=== PATIENT | female | born 1935 | race Caucasian/White ===

== ENCOUNTER → 2018-06-13 | Outpatient (CLI) | payer MEDICARE, OTHER ==
--- NOTE | 2018-06-15 13:34 | MM ---
Reason for exam: screening (asymptomatic). Last mammogram was performed 5 years and 3 months ago. History: Patient is postmenopausal. Family history of breast cancer in sister at age 40. Benign US left CoreBiopsy of both breasts, October 20, 2007. Took hormonal contraceptives for 5 years. Physical Findings: A clinical breast exam by your physician is recommended on an annual basis and results should be correlated with mammographic findings. MG Screening Mammo w CAD Bilateral CC and MLO view(s) were taken. Prior study comparison: March 16, 2013, bilateral digital screening mammo w/CAD. February 05, 2012, [facility] DIGITAL RIGHT MAMMOGRAM w/CAD. There are scattered fibroglandular densities. Previous mammotome biopsy in the left breast. No significant changes when compared with prior studies. ASSESSMENT: Negative, BI-RAD 1 RECOMMENDATION: Routine screening mammogram of both breasts in 1 year.
== END | disposition home or self-care (01) ==
LOC: RADMAMWWP 10:39
PROVIDERS: ATTEND Internal Medicine Geriatric Medicine
DX: Z12.31 Encounter for screening mammogram for malignant neoplasm of breast (principal)
CPT/HCPCS: 77067

== ENCOUNTER 2024-03-08 16:08 | Emergency (ER) | payer MEDICARE, OTHER ==
--- NOTE | 2024-03-08 16:26 | ED ---
General Adult HPI - General Chief complaint: Fall Stated complaint: fall Time Seen by Provider: 03/08/24 16:15 Source: patient, RN notes reviewed, old records reviewed Mode of arrival: EMS Limitations: no limitations - History of Present Illness Initial comments: 89-year-old female presents status post fall with right forehead and periorbital hematoma. Brief loss of consciousness. No anticoagulation. Patient is quite healthy no daily medications only supplements. Denies pain complaints including headache, neck pain, chest or abdominal pain. No extremity injury. Patient is not completely sure why she fell. - Related Data Allergies Allergy/AdvReac Type Severity Reaction Status Date / Time codeine Allergy Swelling Verified 03/08/24 16:18 Penicillins Allergy Rash/Hives Verified 03/08/24 16:18 Review of Systems ROS Statement: Those systems with pertinent positive or pertinent negative responses have been documented in the HPI. ROS Other: All systems not noted in ROS Statement are negative. Past Medical History Past Medical History: Unable to Obtain History of Any Multi-Drug Resistant Organisms: Unobtainable Past Surgical History: Unable to Obtain Past Alcohol Use History: Unable to Obtain Past Drug Use History: Unable to Obtain General Exam Limitations: no limitations General appearance: alert Head exam: Present: other (Large periorbital and frontal hematoma on the right) Eye exam: Present: periorbital swelling, periorbital tenderness Neck exam: Present: normal inspection, other (C-collar in place). Absent: tenderness, meningismus GI/Abdominal exam: Present: soft. Absent: distended, tenderness Extremities exam: Present: normal inspection, normal capillary refill. Absent: pedal edema Neurological exam: Present: alert, oriented X3, CN II-XII intact. Absent: motor sensory deficit Psychiatric exam: Present: normal affect, normal mood Skin exam: Present: warm, dry, intact. Absent: cyanosis, diaphoretic Course Vital Signs 03/08/24 03/08/24 16:10 16:20 Temperature 98.3 F 98.7 F Pulse Rate 104 H 103 H Respiratory 20 18 Rate Blood Pressure 242/108 249/114 O2 Sat by Pulse 95 96 Oximetry Medical Decision Making - Medical Decision Making Was pt. sent in by a medical professional or institution (, PA, PAINT POURER, urgent care, hospital, or senior care...) When possible be specific @ -No Did you speak to anyone other than the patient for history (EMS, parent, family, police, friend...)? What history was obtained from this source @ -No Did you review nursing and triage notes (agree or disagree)? Why? @ -I reviewed and agree with nursing and triage notes Were old charts reviewed (outside hosp., previous admission, EMS record, old EKG, old radiological studies, urgent care reports/EKG's, senior care records)? Report findings @ -No old charts were reviewed Differential Diagnosis traumatic injury after fall, intracranial hemorrhage, globe injury, facial bone fracture, cervical spine fracture or subluxation. EKG interpreted by me (3pts min.). @Sinus rhythm with PVC rate of 93, IL interval 136, QRS duration 130, QTc [address] segment elevation, right bundle branch block. X-rays interpreted by me (1pt min.). @ -None done CT interpreted by me (1pt min.). @ -CT ordered of the brain, cervical spine, facial bones. CT showing subarachnoid hemorrhage. No midline shift. U/S interpreted by me (1pt. min.). @ -None done What testing was considered but not performed or refused? (CT, X-rays, U/S, labs)? Why? @ -None What meds were considered but not given or refused? Why? @ -None Did you discuss the management of the patient with other professionals (robert moreno i.e., Dr., PA, PAINT POURER, lab, RT, psych nurse, public health social worker, weight tester, teacher, employee service officer, dependency case manager)? Give summary @ -Case discussed with [facility] transfer team. Accepting physician Radha Hayden Was smoking cessation discussed for >3mins.? @ -No Was critical care preformed (if so, how long)? @Yes, 35 minutes Were there social determinants of health that impacted care today? How? (Roya elessness, low income, unemployed, alcoholism, drug addiction, transportation, low edu. Level, literacy, decrease access to med. care, group home, rehab)? @ -No Was there de-escalation of care discussed even if they declined (Discuss DNR or withdrawal of care, Hospice)? DNR status @ -No What co-morbidities impacted this encounter? (DM, HTN, Smoking, COPD, CAD, Cancer, CVA, ARF, Chemo, Hep., AIDS, mental health diagnosis, sleep apnea, morbid obesity)? @ -None Was patient admitted / discharged? Hospital course, mention meds given and route, prescriptions, significant lab abnormalities, going to OR and other pertinent info. @ -89-year-old female with ground-level fall, frontal hematoma, CT showing intracranial hemorrhage. CT facial bones and cervical spine are negative for fracture or subluxation. Laboratory testing unremarkable. Patient started on Cardene for blood pressure reduction as her pressure is quite high and given Keppra for seizure prophylaxis. Undiagnosed new problem with uncertain prognosis? @ -No Drug Therapy requiring intensive monitoring for toxicity (Heparin, Nitro, I nsulin, Cardizem)? @ -No Were any procedures done? @ -No Diagnosis/symptom? @ -Intracranial hemorrhage traumatic subarachnoid hemorrhage Acute, or Chronic, or Acute on Chronic? @ -Acute Uncomplicated (without systemic symptoms) or Complicated (systemic symptoms)? @ -Default Side effects of treatment? @ -No Exacerbation, Progression, or Severe Exacerbation? @ -No Poses a threat to life or bodily function? How? (Chest pain, USA, CT, pneumonia, PE, COPD, DKA, ARF, appy, cholecystitis, CVA, Diverticulitis, Homicidal, Suicidal, threat to staff... and all critical care pts) @ -[Yes, intracranial hemorrhage - Lab Data Result diagrams: 03/08/24 16:27 03/08/24 16:27 Lab Results 03/08/24 03/08/24 03/08/24 Range/Units 16:27 16:27 16:27 WBC 7.6 (3.8-10.6) k/uL RBC 5.25 (3.80-5.40) m/uL Hgb 14.1 (11.4-16.0) gm/dL Hct 43.2 (34.0-46.0) % MCV 82.1 (80.0-100.0) fL MCH 26.8 (25.0-35.0) pg MCHC 32.6 (31.0-37.0) g/dL RDW 15.4 (11.5-15.5) % Plt Count 236 (150-450) k/uL MPV 7.9 Neutrophils % 62 % Lymphocytes % 28 % Monocytes % 5 % Eosinophils % 3 % Basophils % 1 % Neutrophils # 4.7 (1.3-7.7) k/uL Lymphocytes # 2.1 (1.0-4.8) k/uL Monocytes # 0.4 (0-1.0) k/uL Eosinophils # 0.2 (0-0.7) k/uL Basophils # 0.1 (0-0.2) k/uL PT 10.3 (10.0-12.5) sec INR 0.9 (<1.2) APTT 28.7 (22.0-30.0) sec Sodium 140 (137-145) mmol/L Potassium 4.1 (3.5-5.1) mmol/L Chloride 104 (98-107) mmol/L Carbon Dioxide 23 (22-30) mmol/L Anion Gap 13 mmol/L BUN 23 H (7-17) mg/dL Creatinine 1.03 (0.52-1.04) mg/dL Est GFR (CKD-EPI)AfAm 56 (>60 ml/min/1.73 sqM) Est GFR (CKD-EPI)NonAf 49 (>60 ml/min/1.73 sqM) Glucose 151 H (74-99) mg/dL Calcium 9.5 (8.4-10.2) mg/dL Total Bilirubin 0.5 (0.2-1.3) mg/dL AST 30 (14-36) U/L ALT 19 (4-34) U/L Alkaline Phosphatase 99 (38-126) U/L Total Protein 7.6 (6.3-8.2) g/dL Albumin 4.6 (3.5-5.0) g/dL Critical Care Time Critical Care Time: Yes Total Critical Care Time: 35 Disposition Clinical Impression: Fall, Intracranial hemorrhage, Traumatic subarachnoid hemorrhage Disposition: OTHER INSTITUTION NOT DEFINED Condition: Serious Is patient prescribed a controlled substance at d/c from ED?: No Referrals: None,Stated [REFERRING] - 1-2 days Time of Disposition: 17:14 - Out of Hospital Transfer - Req. Specs Out of Hospital Transfer - Requested Specifics: Other Emergency Center (Transfer to [facility])
[2024-03-08 16:45] LABS: Basophils # (A) 0.1 k/uL (0-0.2); Basophils % (A) 1 %; Eosinophils # (A) 0.2 k/uL (0-0.7); Eosinophils % (A) 3 %; HCT 43.2 % (34.0-46.0); HGB 14.1 gm/dL (11.4-16.0); Lymphocytes # (A) 2.1 k/uL (1.0-4.8); Lymphocytes % (A) 28 %; MCH 26.8 pg (25.0-35.0); MCHC 32.6 g/dL (31.0-37.0); MCV 82.1 fL (80.0-100.0); Mean Platelet Volume 7.9; Monocytes # (A) 0.4 k/uL (0-1.0); Monocytes % (A) 5 %; Neutrophils # (A) 4.7 k/uL (1.3-7.7); Neutrophils % (A) 62 %; Platelet Count 236 k/uL (150-450); RBC 5.25 m/uL (3.80-5.40); RDW 15.4 % (11.5-15.5); WBC 7.6 k/uL (3.8-10.6)
[2024-03-08 16:54] VITALS: PULSE 103; RESP 18; TEMP 98.7
[2024-03-08 16:55] LABS: INR 0.9 (<1.2); Partial Thromboplastin Time 28.7 sec (22.0-30.0); Prothrombin Time 10.3 sec (10.0-12.5)
[2024-03-08 17:04] LABS: ALT 19 U/L (4-34); AST 30 U/L (14-36); African American GFR (CKD) 56 (>60 ml/min/1.73 sqM); Albumin 4.6 g/dL (3.5-5.0); Alkaline Phosphatase 99 U/L (38-126); Anion Gap 13 mmol/L; Blood Urea Nitrogen 23 mg/dL (7-17); Calcium 9.5 mg/dL (8.4-10.2); Carbon Dioxide 23 mmol/L (22-30); Chloride 104 mmol/L (98-107); Glucose 151 mg/dL (74-99); Non-African American GFR(CKD) 49 (>60 ml/min/1.73 sqM); Potassium 4.1 mmol/L (3.5-5.1); Sodium 140 mmol/L (137-145); Total Bilirubin 0.5 mg/dL (0.2-1.3); Total Protein 7.6 g/dL (6.3-8.2)
--- NOTE | 2024-03-08 17:14 | CT ---
EXAMINATION TYPE: CT brain cspine wo con, CT facial bones wo con CT DLP: combined DLP 1162.8 mGycm, Automated exposure control for dose reduction was used. DATE OF EXAM: 03/08/2024 4:54 PM COMPARISON: None. CLINICAL INDICATION:Female, 89 years old with history of trauma; fall, large contusion over right eye TECHNIQUE: Brain: Multiple axial CT images of the brain were obtained without IV contrast. Cspine: Axial CT images from the skull base to the inferior aspect of T2 we obtained without intraven ous contrast. Coronal and sagittal reformatted images were also reviewed. Facial: Axial imaging of the facial structures with sagittal coronal reformats. FINDINGS: Brain: Extra-axial spaces: High density blood products are seen within the right frontal lobe sulci series 2 and image 14. Ventricular system: Within normal limits Cerebral parenchyma: No acute intraparenchymal hemorrhage or mass effect. The henderson-white junction is well differentiated. Cerebellum: Unremarkable. Mass effect: No evidence of midline shift. Intracranial vasculature: unremarkable Soft tissues: Normal. Calvarium/osseous structures: No depressed skull fracture. Paranasal sinuses and mastoid air cells: Clear. Visualized orbits: Orbital contents are intact. Cervical spine: Fracture: None. Osseous structures: Multilevel degenerative disc disease changes with endplate spurring and disc oste ophyte complex's. Vertebral alignment: Within normal limits. Spinal canal/Neural Foramina: No evidence of significant spinal canal narrowing. No evidence for sign ificant neural foraminal stenosis. Neck soft tissues: Prevertebral soft tissues are within normal limits. Other: The airway is patent. The lung apices are clear. Facial: Large subcutaneous hematoma around the right orbit up to 63 x 21 x 66 mm. The superior aspect of the [id number]. The proximal do not extend into the extraconal or intraconal fat. Bilaterally aphakia. The temporomandibular joints are symmetric. No evidence of significant paranasal sinus disea se. Atherosclerosis of the carotid bifurcations. IMPRESSION: Large right periorbital subcutaneous hematoma. No evidence for injury to the globe. No intraconal ext raconal blood products are identified. IMPRESSION: 1. Subarachnoid hemorrhage involving the right frontal lobe best appreciated on sagittal imaging. 2. Large right superior orbital subjacent contusion no definitive fracture identified. 3. No evidence of cervical spine fracture. 4. Moderate multilevel degenerative disc disease. Findings communicated to Dr. Michael Darling MD on 03/08/2024 5:[address] Michael Rice.
[2024-03-08] MEDS: niCARdipine 20 MG in SODIUM CHLORIDE 0.9% 192 ML IV SCH (17:41)
[2024-03-08] MEDS: levETIRAcetam IV 2,000 MG in SODIUM CHLORIDE 0.9% 250 ML IVPB ONE (17:43)
[2024-03-08] MEDS: SODIUM CHLORIDE 0.9% 1,000 ML IV SCH (17:43)
[2024-03-08 19:07] VITALS: BP 186/83
== END 2024-03-08 18:20 | disposition other institution (70) ==
LOC: EC 16:08
DX: S06.6XAA Traumatic subarachnoid hemorrhage with loss of consciousness status unknown, initial encounter (principal); S05.11XA Contusion of eyeball and orbital tissues, right eye, initial encounter; R40.2362 Coma scale, best motor response, obeys commands, at arrival to emergency department; R40.2142 Coma scale, eyes open, spontaneous, at arrival to emergency department; R40.2252 Coma scale, best verbal response, oriented, at arrival to emergency department; Z88.0 Allergy status to penicillin; Z88.5 Allergy status to narcotic agent; W01.0XXA Fall on same level from slipping, tripping and stumbling without subsequent striking against object, initial encounter
CPT/HCPCS: 36415; 93005; 80053; 85025; 85610; 85730; 72125; 70486; 70450; 99291; 96365; 96375; J1953

== ENCOUNTER 2024-03-15 10:53 | Observation (INO) | payer MEDICARE, OTHER ==
[2024-03-15 12:28] LABS: Basophils % (A) 1 %; Eosinophils # (A) 0.2 k/uL (0-0.7); Eosinophils % (A) 2 %; HCT 40.3 % (34.0-46.0); Lymphocytes # (A) 1.6 k/uL (1.0-4.8); Lymphocytes % (A) 20 %; MCH 26.7 pg (25.0-35.0); MCHC 32.1 g/dL (31.0-37.0); MCV 82.9 fL (80.0-100.0); Mean Platelet Volume 9.1; Monocytes # (A) 0.5 k/uL (0-1.0); Monocytes % (A) 6 %; Neutrophils # (A) 5.5 k/uL (1.3-7.7); Neutrophils % (A) 69 %; Platelet Count 273 k/uL (150-450); RBC 4.86 m/uL (3.80-5.40); RDW 15.4 % (11.5-15.5); WBC 7.9 k/uL (3.8-10.6)
[2024-03-15 12:48] LABS: ALT 27 U/L (4-34); AST 40 U/L (14-36); African American GFR (CKD) 74 (>60 ml/min/1.73 sqM); Albumin 4.1 g/dL (3.5-5.0); Alkaline Phosphatase 82 U/L (38-126); Anion Gap 9 mmol/L; Blood Urea Nitrogen 23 mg/dL (7-17); Calcium 9.2 mg/dL (8.4-10.2); Carbon Dioxide 21 mmol/L (22-30); Chloride 112 mmol/L (98-107); Glucose 80 mg/dL (74-99); Magnesium 2.2 mg/dL (1.6-2.3); Non-African American GFR(CKD) 64 (>60 ml/min/1.73 sqM); Partial Thromboplastin Time 28.1 sec (22.0-30.0); Phosphorus 3.3 mg/dL (2.5-4.5); Potassium 3.9 mmol/L (3.5-5.1); Prothrombin Time 10.5 sec (10.0-12.5); Sodium 142 mmol/L (137-145); Total Bilirubin 0.9 mg/dL (0.2-1.3)
[2024-03-15 13:56] LABS: Appearance,Urine Cloudy (Clear); Bacteria,Urine Many /hpf; Bilirubin,Urine Negative (Negative); Blood,Urine Negative (Negative); Color,Urine Yellow; Glucose,Urine (UA) Negative (Negative); Hyaline Casts,Urine 5 /lpf (0-2); Ketones,Urine 1+ (Negative); Leukocyte Esterase,Urine Small (Negative); Mucus,Urine Many /hpf; Nitrite,Urine Negative (Negative); PH, Urine 5.5 (5.0-8.0); Protein,Urine 1+ (Negative); RBC,Urine 2 /hpf (0-5); Specific Gravity,Urine 1.025 (1.001-1.035); Squamous Epithelial Cell,Urine 7 /hpf (0-4); WBC,Urine 9 /hpf (0-5)
--- NOTE | 2024-03-15 14:03 | XR ---
EXAMINATION TYPE: XR chest 2V DATE OF EXAM: 03/15/2024 1:04 PM CLINICAL INDICATION:Female, 89 years old with history of Weakness; [facility] COMPARISON: None. TECHNIQUE: XR chest 2V Frontal and lateral views of the chest. FINDINGS: Lungs/Pleura: There is no evidence of pleural effusion, focal consolidation, or pneumothorax. Pulmonary vascularity: Unremarkable. Heart/mediastinum: Cardiomediastinal silhouette is unremarkable. Musculoskeletal: No acute osseous pathology. Other findings: None Lines/Tubes: None. IMPRESSION: No acute cardiopulmonary disease/process.
[2024-03-15] MEDS ORDERED: ACETAMINOPHEN TAB 325 MG TAB PO PRN (14:30)
[2024-03-15] MEDS ORDERED: NALOXONE 0.4 MG/ML 1 ML VIAL IV PRN (14:30)
--- NOTE | 2024-03-15 14:30 | ED ---
Weakness HPI - General Chief complaint: Weakness Stated complaint: Weakness Time Seen by Provider: 03/15/24 11:11 Source: patient, EMS, RN notes reviewed Mode of arrival: EMS Limitations: no limitations - History of Present Illness Initial comments: 89-year-old female presents emergency department with chief complaint of weakness. Patient states she was seen here last Wednesday and was transferred down to [facility] for intracranial hemorrhage. Patient states she was placed on once new medications but states that she was told she would need diomedes ab. She states she told she may have had a stroke. Patient states that she went home from the hospital yesterday and sat in recliner throughout the night to this morning in which family could not get up to walk. Patient is eating inpatient therapy she was eval by outpatient and felt that she was too high acuity. - Related Data Home Medications Medication Instructions Recorded Confirmed Acetaminophen [Tylenol] 650 mg PO Q6H PRN 03/15/24 03/15/24 Atorvastatin [Lipitor] 40 mg PO HS 03/15/24 03/15/24 Clopidogrel [Plavix] 75 mg PO DAILY 03/15/24 03/15/24 Losartan [Cozaar] 50 mg PO DAILY 03/15/24 03/15/24 Multivitamins, Thera [Multivitamin 1 tab PO DAILY 03/15/24 03/15/24 (formulary)] NIFEdipine [Adalat CC] 30 mg PO DAILY 03/15/24 03/15/24 [place]-3/Dha/Epa/Fish Oil [Fish Oil 1 cap PO DAILY 03/15/24 03/15/24 1,000 mg Softgel] levETIRAcetam [Keppra] 500 mg PO BID 03/15/24 03/15/24 Allergies Allergy/AdvReac Type Severity Reaction Status Date / Time codeine Allergy Swelling Verified 03/15/24 13:08 Penicillins Allergy Rash/Hives Verified 03/15/24 13:08 Review of Systems ROS Statement: Those systems with pertinent positive or pertinent negative responses have been documented in the HPI. ROS Other: All systems not noted in ROS Statement are negative. Past Medical History Past Medical History: Unable to Obtain History of Any Multi-Drug Resistant Organisms: Unobtainable Past Surgical History: Unable to Obtain Past Alcohol Use History: Unable to Obtain Past Drug Use History: Unable to Obtain General Exam Limitations: no limitations General appearance: alert, in no apparent distress Head exam: Present: atraumatic, normocephalic, normal inspection Eye exam: Present: PERRL, EOMI, periorbital swelling, periorbital tenderness. Absent: normal appearance (Extensive facial and periorbital ecchymosis), scleral icterus, conjunctival injection ENT exam: Present: normal exam, mucous membranes moist Neck exam: Present: normal inspection, full ROM. Absent: tenderness, meningismus, lymphadenopathy Respiratory exam: Present: normal lung sounds bilaterally. Absent: respiratory distress, wheezes, rales, rhonchi, stridor Cardiovascular Exam: Present: regular rate, normal rhythm, normal heart sounds. Absent: systolic murmur, diastolic murmur, rubs, gallop, clicks GI/Abdominal exam: Present: soft, normal bowel sounds. Absent: distended, tend erness, guarding, rebound, rigid Extremities exam: Present: other (Generalized weakness) Neurological exam: Present: alert, oriented X3. Absent: motor sensory deficit Course Vital Signs 03/15/24 11:19 Temperature 98.1 F Pulse Rate 75 Respiratory 18 Rate Blood Pressure 159/68 O2 Sat by Pulse 97 Oximetry EKG Findings - EKG Comments: EKG Findings:: EKG performed at 12: 14 sinus rhythm rate of 69 ND 146 QRS 135 QT/QTc 458/476 - EKG Results: EKG: interpreted by ALEXANDR Medical Decision Making - Medical Decision Making Was pt. sent in by a medical professional or institution (, PA, HEALTH SERVICES RN, urgent care, hospital, or senior living...) When possible be specific @ -No Did you speak to anyone other than the patient for history (EMS, parent, family, police, friend...)? What history was obtained from this source @ -No Did you review nursing and triage notes (agree or disagree)? Why? @ -I reviewed and agree with nursing and triage notes Were old charts reviewed (outside hosp., previous admission, EMS record, old EKG, old radiological studies, urgent care reports/EKG's, senior living records)? Report findings @ -No old charts were reviewed Differential Diagnosis (chest pain, altered mental status, abdominal pain women, abdominal pain men, vaginal bleeding, weakness, fever, dyspnea, syncope, headache, dizziness, GI bleed, back pain, seizure, CVA, palpatations, mental health, musculoskeletal)? @ -Differential Weakness: Hypoglycemia, shock, sepsis, hyponatremia, anemia, infection, OH, ETOH, adverse medicine reaction, overdose, stroke, this is not meant to be an all-inclusive list. EKG interpreted by me (3pts min.). @ -As above X-rays interpreted by me (1pt min.). @ -None done CT interpreted by me (1pt min.). @ -None done U/S interpreted by me (1pt. min.). @ -None done What testing was considered but not performed or refused? (CT, X-rays, U/S, labs)? Why? @ -None What meds were considered but not given or refused? Why? @ -None Did you discuss the management of the patient with other professionals (professionals i.e. , PA, HEALTH SERVICES RN, lab, RT, psych nurse, social scientist, oil change technician, teacher, collection officer, shoe parts caser)? Give summary @ -Dr. Daley for admission for placement in rehab Was smoking cessation discussed for >3mins.? @ -No Was critical care preformed (if so, how long)? @ -No Were there social determinants of health that impacted care today? How? (Homelessness, low income, unemployed, alcoholism, drug addiction, transportation, low edu. Level, literacy, decrease access to med. care, halfway, rehab)? @ -No Was there de-escalation of care discussed even if they declined (Discuss DNR or withdrawal of care, Hospice)? DNR status @ -No What co-morbidities impacted this encounter? (DM, HTN, Smoking, COPD, CAD, Cancer, CVA, ARF, Chemo, Hep., AIDS, mental health diagnosis, sleep apnea, morbid obesity)? @ -Intracranial hemorrhage Was patient admitted / discharged? Hospital course, mention meds given and route, prescriptions, significant lab abnormalities, going to OR and other pertinent info. @ -Admitted patient had full repeat laboratory studies no acute findings patient is no focal weakness no new head injury or loss conscious. Patient will be admitted for placement to inpatient rehab Undiagnosed new problem with uncertain prognosis? @ -No Drug Therapy requiring intensive monitoring for toxicity (Heparin, Nitro, Insulin, Cardizem)? @ -No Were any procedures done? @ -No Diagnosis/symptom? @ -Weakness, unable to ambulate, recent intracranial hemorrhage Acute, or Chronic, or Acute on Chronic? @ -Acute Uncomplicated (without systemic symptoms) or Complicated (systemic symptoms)? @ -Uncomplicated Side effects of treatment? @ -No Exacerbation, Progression, or Severe Exacerbation? @ -No Poses a threat to life or bodily function? How? (Chest pain, USA, [place], pneumonia, PE, COPD, DKA, ARF, appy, cholecystitis, CVA, Diverticulitis, Homicidal, Suicidal, threat to staff... and all critical care pts) @ -No - Lab Data Result diagrams: 03/15/24 12:15 03/15/24 12:15 Lab Results 03/15/24 03/15/24 03/15/24 Range/Units 12:15 12:15 12:15 WBC 7.9 (3.8-10.6) k/uL RBC 4.86 (3.80-5.40) m/uL Hgb 13.0 (11.4-16.0) gm/dL Hct 40.3 (34.0-46.0) % MCV 82.9 (80.0-100.0) fL MCH 26.7 (25.0-35.0) pg MCHC 32.1 (31.0-37.0) g/dL RDW 15.4 (11.5-15.5) % Plt Count 273 (150-450) k/uL MPV 9.1 Neutrophils % 69 % Lymphocytes % 20 % Monocytes % 6 % Eosinophils % 2 % Basophils % 1 % Neutrophils # 5.5 (1.3-7.7) k/uL Lymphocytes # 1.6 (1.0-4.8) k/uL Monocytes # 0.5 (0-1.0) k/uL Eosinophils # 0.2 (0-0.7) k/uL Basophils # 0.0 (0-0.2) k/uL PT 10.5 (10.0-12.5) sec INR 1.0 (<1.2) APTT 28.1 (22.0-30.0) sec Sodium (137-145) mmol/L Potassium (3.5-5.1) mmol/L Chloride (98-107) mmol/L Carbon Dioxide (22-30) mmol/L Anion Gap mmol/L BUN (7-17) mg/dL Creatinine (0.52-1.04) mg/dL Est GFR (CKD-EPI)AfAm (>60 ml/min/1.73 sqM) Est GFR (CKD-EPI)NonAf (>60 ml/min/1.73 sqM) Glucose (74-99) mg/dL Plasma Lactic Acid Abdulaziz (0.7-2.0) mmol/L Calcium (8.4-10.2) mg/dL Phosphorus (2.5-4.5) mg/dL Magnesium (1.6-2.3) mg/dL Total Bilirubin (0.2-1.3) mg/dL AST (14-36) U/L ALT (4-34) U/L Alkaline Phosphatase (38-126) U/L Troponin I (0.000-0.034) ng/mL Total Protein (6.3-8.2) g/dL Albumin (3.5-5.0) g/dL Urine Color Yellow Urine Appearance Cloudy H (Clear) Urine pH 5.5 (5.0-8.0) Ur Specific [place] 1.025 (1.001-1.035) Urine Protein 1+ H (Negative) Urine Glucose (UA) Negative (Negative) Urine Ketones 1+ H (Negative) Urine Blood Negative (Negative) Urine Nitrite Negative (Negative) Urine Bilirubin Negative (Negative) Urine Urobilinogen 2.0 (<2.0) mg/dL Ur Leukocyte Esterase Small H (Negative) Urine RBC 2 (0-5) /hpf Urine WBC 9 H (0-5) /hpf Ur Squamous Epith Cells 7 H (0-4) /hpf Urine Bacteria Many H (None) /hpf Hyaline Casts 5 H (0-2) /lpf Urine Mucus Many H (None) /hpf 03/15/24 03/15/24 03/15/24 Range/Units 12:15 12:15 12:15 WBC (3.8-10.6) k/uL RBC (3.80-5.40) m/uL Hgb (11.4-16.0) gm/dL Hct (34.0-46.0) % MCV (80.0-100.0) fL MCH (25.0-35.0) pg MCHC (31.0-37.0) g/dL RDW (11.5-15.5) % Plt Count (150-450) k/uL MPV Neutrophils % % Lymphocytes % % Monocytes % % Eosinophils % % Basophils % % Neutrophils # (1.3-7.7) k/uL Lymphocytes # (1.0-4.8) k/uL Monocytes # (0-1.0) k/uL Eosinophils # (0-0.7) k/uL Basophils # (0-0.2) k/uL PT (10.0-12.5) sec INR (<1.2) APTT (22.0-30.0) sec Sodium 142 (137-145) mmol/L Potassium 3.9 (3.5-5.1) mmol/L Chloride 112 H (98-107) mmol/L Carbon Dioxide 21 L (22-30) mmol/L Anion Gap 9 mmol/L BUN 23 H (7-17) mg/dL Creatinine 0.82 (0.52-1.04) mg/dL Est GFR (CKD-EPI)AfAm 74 (>60 ml/min/1.73 sqM) Est GFR (CKD-EPI)NonAf 64 (>60 ml/min/1.73 sqM) Glucose 80 (74-99) mg/dL Plasma Lactic Acid Abdulaziz 1.0 (0.7-2.0) mmol/L Calcium 9.2 (8.4-10.2) mg/dL Phosphorus 3.3 (2.5-4.5) mg/dL Magnesium 2.2 (1.6-2.3) mg/dL Total Bilirubin 0.9 (0.2-1.3) mg/dL AST 40 H (14-36) U/L ALT 27 (4-34) U/L Alkaline Phosphatase 82 (38-126) U/L Troponin I 0.024 (0.000-0.034) ng/mL Total Protein 7.0 (6.3-8.2) g/dL Albumin 4.1 (3.5-5.0) g/dL Urine Color Urine Appearance (Clear) Urine pH (5.0-8.0) Ur Specific [place] (1.001-1.035) Urine Protein (Negative) Urine Glucose (UA) (Negative) Urine Ketones (Negative) Urine Blood (Negative) Urine Nitrite (Negative) Urine Bilirubin (Negative) Urine Urobilinogen (<2.0) mg/dL Ur Leukocyte Esterase (Negative) Urine RBC (0-5) /hpf Urine WBC (0-5) /hpf Ur Squamous Epith Cells (0-4) /hpf Urine Bacteria (None) /hpf Hyaline Casts (0-2) /lpf Urine Mucus (None) /hpf Disposition Clinical Impression: Weakness, Recent cerebral hemorrhage, Unable to ambulate Disposition: ADMITTED IP TO THIS HOSP Condition: Fair Referrals: Carmine Daley MD [Primary Care Provider] - 1-2 days Time of Disposition: 14:29
[2024-03-15] MEDS: hydrALAZINE HCL 10 MG TAB PO SCH (18:07)
[2024-03-15] MEDS: ATORVASTATIN 40 MG TAB PO SCH (21:35)
[2024-03-15] MEDS: levETIRAcetam 500 MG TAB PO SCH (21:35)
--- NOTE | 2024-03-16 08:42 | P.HPIM ---
History of Present Illness H&P Date: 03/16/24 Chief Complaint: weakness This is an 89-year-old female who presented to the emergency department with complaints of weakness. Patient had a recent stay at [facility] for an intracranial hemorrhage from a fall. Patient reports prior to fall she was at the [place] on aging and does not remember the fall. Patient was originally brought to [facility] but then transferred to [facility]. She was discharged from [facility] on Wednesday and felt she was too weak to stay at home so she came to the emergency room. Patient seen and evaluated laying in bed this morning. She has bruising on her face. Reports her right leg feels weak. She has not been up moving around the room yet. Physical therapy and Occupational Therapy have been consulted. Further medical history as noted below. Review of Systems Constitutional: Denies chills, Denies fever Cardiovascular: Denies chest pain, Denies dyspnea on exertion Respiratory: Denies cough, Denies dyspnea Gastrointestinal: Denies abdominal pain, Denies nausea, Denies vomiting Musculoskeletal: Denies arm numbness/tingling, Denies leg numbness/tingling Neurological: Reports weakness, Denies headaches Past Medical History Past Medical History: Unable to Obtain History of Any Multi-Drug Resistant Organisms: Unobtainable Past Surgical History: Hernia Repair Smoking Status: Former smoker Past Alcohol Use History: Unable to Obtain Past Drug Use History: Unable to Obtain Medications and Allergies Home Medications Medication Instructions Recorded Confirmed Type Acetaminophen [Tylenol] 650 mg PO Q6H PRN 03/15/24 03/15/24 History Atorvastatin [Lipitor] 40 mg PO HS 03/15/24 03/15/24 History Clopidogrel [Plavix] 75 mg PO DAILY 03/15/24 03/15/24 History Losartan [Cozaar] 50 mg PO DAILY 03/15/24 03/15/24 History Multivitamins, Thera [Multivitamin 1 tab PO DAILY 03/15/24 03/15/24 History (formulary)] NIFEdipine [Adalat CC] 30 mg PO DAILY 03/15/24 03/15/24 History [place]-3/Dha/Epa/Fish Oil [Fish Oil 1 cap PO DAILY 03/15/24 03/15/24 History 1,000 mg Softgel] levETIRAcetam [Keppra] 500 mg PO BID 03/15/24 03/15/24 History Allergies Allergy/AdvReac Type Severity Reaction Status Date / Time codeine Allergy Swelling Verified 03/15/24 13:08 Penicillins Allergy Rash/Hives Verified 03/15/24 13:08 Physical Exam Vitals: Vital Signs Temp Pulse Pulse Resp BP BP Pulse Ox 03/16/24 08:15 96 03/16/24 06:56 99.1 F 87 18 180/74 96 03/16/24 01:57 98.5 F 88 16 170/77 97 03/15/24 17:07 97.6 F 90 17 200/90 98 03/15/24 16:08 98.1 F 81 17 185/54 100 03/15/24 15:21 98.1 F 80 18 171/72 97 03/15/24 11:19 98.1 F 75 18 159/68 97 Intake and Output 03/15/24 03/16/24 03/16/24 22:59 06:59 14:59 Output Total 900 Balance -900 Output: Urine 900 Other: Voiding Method External Catheter # Voids 0 Weight 65.771 kg - Constitutional General appearance: cooperative, no acute distress - EENT Eyes: PERRLA - Neck Neck: no lymphadenopathy, normal ROM, no rigidity - Respiratory Respiratory: bilateral: CTA - Cardiovascular Rhythm: regular Heart sounds: normal: S1, S2 - Gastrointestinal General gastrointestinal: soft, no tenderness - Integumentary bruising and right eye edema - Neurologic Neurologic: CNII-XII intact - Musculoskeletal Musculoskeletal: generalized weakness, strength equal bilaterally - Psychiatric Psychiatric: A&O x's 3 Results CBC & Chem 7: 03/15/24 12:15 03/15/24 12:15 Labs: Abnormal Lab Results - Last 24 Hours (Table) 03/15/24 03/15/24 Range/Units 12:15 12:15 Chloride 112 H (98-107) mmol/L Carbon Dioxide 21 L (22-30) mmol/L BUN 23 H (7-17) mg/dL AST 40 H (14-36) U/L Urine Appearance Cloudy H (Clear) Urine Protein 1+ H (Negative) Urine Ketones 1+ H (Negative) Ur Leukocyte Esterase Small H (Negative) Urine WBC 9 H (0-5) /hpf Ur Squamous Epith Cells 7 H (0-4) /hpf Urine Bacteria Many H (None) /hpf Hyaline Casts 5 H (0-2) /lpf Urine Mucus Many H (None) /hpf Thrombosis Risk Factor Assmnt - Choose All That Apply Each Factor Represents 1 point: Obesity (BMI >25) Each Risk Factor Represents 3 Points: Age 75 years or older Thrombosis Risk Factor Assessment Total Risk Factor Score: 4 Thrombosis Risk Factor Assessment Level: Moderate Risk Assessment and Plan (1) Hypertension Current Visit: Yes Status: Acute Code(s): I10 - ESSENTIAL (PRIMARY) HYPERT ENSION SNOMED Code(s): 30387567 (2) Recent cerebral hemorrhage Current Visit: Yes Status: Acute Code(s): Z86.73 - PRSNL HX OF TIA (TIA), AND CEREB INFRC W/O RESID DEFICITS SNOMED Code(s): 537882602 (3) Unable to ambulate Current Visit: Yes Status: Acute Code(s): R26.2 - DIFFICULTY IN WALKING, NOT ELSEWHERE CLASSIFIED SNOMED Code(s): 359548341 (4) Weakness Current Visit: Yes Status: Acute Code(s): R53.1 - WEAKNESS SNOMED Code(s): 68092631 Plan: Check CBC and CMP in the morning. Consulted PT and OT for evaluation. Case management consult to work on placement for discharge Patient seen and evaluated by nurse practitioner, physician in agreement with plan
[2024-03-16] MEDS: LOSARTAN 50 MG TAB PO SCH (10:12)
[2024-03-16] MEDS: MULTIVITAMINS, THERA 1 EACH TAB PO SCH (10:12)
[2024-03-16] MEDS: CLOPIDOGREL 75 MG TAB PO SCH (10:12)
[2024-03-16] MEDS: NIFEdipine XL 30 MG TAB.ER.24 PO SCH (10:13)
[2024-03-16] MEDS: hydrALAZINE HCL 20 MG/ML 1 ML VIAL IVP PRN (20:35)
--- NOTE | 2024-03-17 08:19 | P.DS ---
Providers Date of admission: 03/15/24 14:07 Attending physician: Carmine Daley Primary care physician: Carmine Daley Patient Condition at Discharge: Fair Plan - Discharge Summary Discharge Rx Participant: Yes New Discharge Prescriptions: Continue levETIRAcetam [Keppra] 500 mg PO BID Multivitamins, Thera [Multivitamin (formulary)] 1 tab PO DAILY Atorvastatin [Lipitor] 40 mg PO HS Acetaminophen [Tylenol] 650 mg PO Q6H PRN PRN Reason: Fever And/ Or Pain [place]-3/Dha/Epa/Fish Oil [Fish Oil 1,000 mg Softgel] 1 cap PO DAILY Clopidogrel [Plavix] 75 mg PO DAILY NIFEdipine [Adalat CC] 30 mg PO DAILY Changed Losartan [Cozaar] 100 mg PO DAILY 2 Days #30 tab Discharge Medication List Acetaminophen [Tylenol] 650 mg PO Q6H PRN 03/15/24 [History] Atorvastatin [Lipitor] 40 mg PO HS 03/15/24 [History] Clopidogrel [Plavix] 75 mg PO DAILY 03/15/24 [History] Multivitamins, Thera [Multivitamin (formulary)] 1 tab PO DAILY 03/15/24 [Hi story] NIFEdipine [Adalat CC] 30 mg PO DAILY 03/15/24 [History] [place]-3/Dha/Epa/Fish Oil [Fish Oil 1,000 mg Softgel] 1 cap PO DAILY 03/15/24 [History] levETIRAcetam [Keppra] 500 mg PO BID 03/15/24 [History] Losartan [Cozaar] 100 mg PO DAILY 2 Days #30 tab 03/17/24 [Rx] Follow up Appointment(s)/Referral(s): Carmine Daley MD [Primary Care Provider] - 1 Week Discharge Disposition: TRANSFER TO SNF/ECF
--- NOTE | 2024-03-17 08:20 | P.DS ---
Providers Date of admission: 03/15/24 14:07 Attending physician: Carmine Daley Primary care physician: Carmine Daley Hospital Course: This is a discharge from an 89-year-old white female who fell having facial hematoma and intracranial hemorrhage. She went home and had significant weakness and mobility issues. She was now readmitted for placement. She was transferred to ECF for appropriate balance and strength reintegration. Blood pressure was elevated with hypertensive urgency, we will increase her losartan after giving her hydralazine here. The patient will follow-up with me in about a week. Patient Condition at Discharge: Fair Plan - Discharge Summary Discharge Rx Participant: Yes New Discharge Prescriptions: Continue levETIRAcetam [Keppra] 500 mg PO BID Multivitamins, Thera [Multivitamin (formulary)] 1 tab PO DAILY Atorvastatin [Lipitor] 40 mg PO HS Acetaminophen [Tylenol] 650 mg PO Q6H PRN PRN Reason: Fever And/ Or Pain [place]-3/Dha/Epa/Fish Oil [Fish Oil 1,000 mg Softgel] 1 cap PO DAILY Clopidogrel [Plavix] 75 mg PO DAILY NIFEdipine [Adalat CC] 30 mg PO DAILY Changed Losartan [Cozaar] 100 mg PO DAILY 2 Days #30 tab Discharge Medication List Acetaminophen [Tylenol] 650 mg PO Q6H PRN 03/15/24 [History] Atorvastatin [Lipitor] 40 mg PO HS 03/15/24 [History] Clopidogrel [Plavix] 75 mg PO DAILY 03/15/24 [History] Multivitamins, Thera [Multivitamin (formulary)] 1 tab PO DAILY 03/15/24 [History] NIFEdipine [Adalat CC] 30 mg PO DAILY 03/15/24 [History] [place]-3/Dha/Epa/Fish Oil [Fish Oil 1,000 mg Softgel] 1 cap PO DAILY 03/15/24 [History] levETIRAcetam [Keppra] 500 mg PO BID 03/15/24 [History] Losartan [Cozaar] 100 mg PO DAILY 2 Days #30 tab 03/17/24 [Rx] Follow up Appointment(s)/Referral(s): Carmine Daley MD [Primary Care Provider] - 1 Week Discharge Disposition: TRANSFER TO SNF/ECF
[2024-03-17 09:11] VITALS: BP 172/74; PULSE 77; RESP 18; TEMP 98.8
[2024-03-17 10:53] LABS: HCT 39.1 % (37.2-46.3); HGB 12.3 g/dL (12.0-15.0); MCH 26.1 pg (27.0-32.0); MCHC 31.5 g/dL (32.0-37.0); Mean Platelet Volume 10.4 FL (9.5-12.2); NRBC Per 100 WBC 0 X 10*3/uL (0.00-0.01); Platelet Count 258 X 10*3/uL (140-440); RBC 4.71 X 10*6/uL (4.10-5.20); RDW 15.6 % (11.5-14.5); WBC 8.05 X 10*3/uL (4.50-10.00)
[2024-03-17 11:07] LABS: ALT 26 U/L (8-44); AST 36 U/L (13-35); Albumin/Globulin Ratio 1.74 Ratio (1.60-3.17); Alkaline Phosphatase 79 U/L (41-126); BUN/Creat Ratio 17.56 Ratio (12.00-20.00); Blood Urea Nitrogen 15.8 mg/dL (9.0-27.0); Calcium 9.4 mg/dL (8.7-10.3); Carbon Dioxide 20.2 mmol/L (21.6-31.8); Chloride 107 mmol/L (96-109); Globulin 2.3 g/dL (1.6-3.3); Glucose 92 mg/dL (70-110); Potassium 3.9 mmol/L (3.5-5.5); Sodium 140 mmol/L (135-145); Total Bilirubin 0.8 mg/dL (0.3-1.2); Total Protein 6.3 g/dL (6.2-8.2)
== END 2024-03-17 14:19 ==
LOC: EC 10:53 → 4SSUR 14:07
PROVIDERS: ADMIT Family Medicine; ATTEND Family Medicine
DX: S06.30AA Unspecified focal traumatic brain injury with loss of consciousness status unknown, initial encounter (principal); W19.XXXA Unspecified fall, initial encounter; I16.0 Hypertensive urgency
CPT/HCPCS: 96374; 99285; 36415; 94760; 93005; 97162; 97166; 80053 ×2; 83605; 83735; 84100; 84484; 85025; 85027; 85610; 85730; 81001; 71046; G0378 ×3; J0360

== ENCOUNTER 2024-04-10 18:35 | Emergency (ER) | payer MEDICARE, OTHER ==
--- NOTE | 2024-04-10 20:09 | ED ---
ENT HPI - General Chief complaint: ENT Stated complaint: Nose Bleed Time Seen by Provider: 04/10/24 20:09 Source: patient, family, RN notes reviewed Mode of arrival: ambulatory Limitations: no limitations - History of Present Illness Initial comments: 89-year-old female presenting to the ER with a chief complaint of epistaxis. Patient recently seen here on 03-08-2024 for a fall. Patient found to have an intracranial hemorrhage and transferred to [facility] for further evaluation and treatment. Patient was discharged home after 3-day stay at [facility]. Patient was seen here again on 03-15-2024 for weakness and rehab placement. Patient has been residing at [facility] since 03-17-2024. Yesterday staff at [facility] report patient had a nosebleed. She is currently on Plavix. They state they took her blood pressure at that time and found to be 220/98. They gave her nifedipine and clonidine with resolution of blood pressure to 130s systolic. Today patient had multiple nosebleeds per staff. Son reports he saw her earlier this morning and again in the afternoon and states she has been slightly weak/altered. Patient sent here for evaluation. Patient denies any current pain or complaints. - Related Data Home Medications Medication Instructions Recorded Confirmed Atorvastatin [Lipitor] 40 mg PO HS@209903/15/24 04/12/24 Clopidogrel [Plavix] 75 mg PO DAILY@79903/15/24 04/12/24 Multivitamins, Thera [Multivitamin 1 tab PO DAILY@79903/15/24 04/12/24 (formulary)] NIFEdipine [Adalat CC] 30 mg PO DAILY@79903/15/24 04/12/24 [place]-3/Dha/Epa/Fish Oil [Fish Oil 1 cap PO DAILY@79903/15/24 04/12/24 1,000 mg Softgel] levETIRAcetam [Keppra] 500 mg PO BID@0800,209903/15/24 04/12/24 Acetaminophen [Tylenol 8 Hour] 650 mg PO Q6H PRN 04/12/24 04/12/24 Aspirin EC [Ecotrin Low Dose] 81 mg PO DAILY@0800 04/12/24 04/12/24 Dextran/Hypromellose/Glycerin 1 drop BOTH EYES BID PRN 04/12/24 04/12/24 [Genteal Tears 0.1%-0.2%-0.3%] Magnesium Hydroxide [Milk of 7,200 mg PO Q48H PRN 04/12/24 04/12/24 Magnesia Concentrate] Menthol [Biofreeze] 1 applic TOPICAL TID@0800,1400,2100 04/12/24 04/12/24 Na Phos,M-B/Na Phos,Di-Ba [Fleet 133 ml RECTAL DAILY PRN 04/12/24 04/12/24 Adult] Oxymetazoline 0.05% Nasl [place] 2 spray EA NOSTRIL 5XD PRN 04/12/24 04/12/24 [Afrin 0.05% Nasal [place]] Pantoprazole [Protonix] 40 mg PO DAILY@0600 04/12/24 04/12/24 bisacodyL [Dulcolax] 10 mg RECTAL DAILY PRN 04/12/24 04/12/24 cloNIDine HCL [Catapres] 0.1 mg PO Q6H PRN 04/12/24 04/12/24 Previous Rx's Medication Instructions Recorded Losartan [Cozaar] 100 mg PO DAILY 2 Days #30 tab 03/17/24 Allergies Allergy/AdvReac Type Severity Reaction Status Date / Time codeine Allergy Swelling Verified 04/12/24 19:36 Penicillins Allergy Rash/Hives Verified 04/12/24 19:36 Review of Systems ROS Statement: Those systems with pertinent positive or pertinent negative responses have been documented in the HPI. ROS Other: All systems not noted in ROS Statement are negative. Past Medical History Past Medical History: Unable to Obtain Additional Past Medical History / Comment(s): stroke- 2023 History of Any Multi-Drug Resistant Organisms: Unobtainable Past Surgical History: Hernia Repair Smoking Status: Former smoker Past Alcohol Use History: Unable to Obtain Past Drug Use History: Unable to Obtain General Exam Limitations: no limitations General appearance: alert, in no apparent distress Head exam: Present: atraumatic, normocephalic, normal inspection Eye exam: Present: normal appearance, PERRL, EOMI, other (Healing contusion u nder right eye). Absent: scleral icterus, conjunctival injection, periorbital swelling Pupils: Present: normal accommodation ENT exam: Present: normal exam, normal oropharynx, mucous membranes moist, TM's normal bilaterally Respiratory exam: Present: normal lung sounds bilaterally. Absent: respiratory distress, wheezes, rales, rhonchi, stridor Cardiovascular Exam: Present: regular rate, normal rhythm, normal heart sounds. Absent: systolic murmur, diastolic murmur, rubs, gallop, clicks Skin exam: Present: warm, dry, intact, normal color. Absent: rash Course Vital Signs 04/10/24 04/10/24 18:42 23:17 Temperature 98.5 F 98.4 F Pulse Rate 83 84 Respiratory 16 17 Rate Blood Pressure 113/53 118/60 O2 Sat by Pulse 97 98 Oximetry Medical Decision Making - Medical Decision Making Was pt. sent in by a medical professional or institution (, PA, PIPE CUTTER, urgent care, hospital, or group home...) When possible be specific @ -No Did you speak to anyone other than the patient for history (EMS, parent, family, police, friend...)? What history was obtained from this source @ -Son aiding in HPI and past medical history. Did you review nursing and triage notes (agree or disagree)? Why? @ -I reviewed and agree with nursing and triage notes Were old charts reviewed (outside hosp., previous admission, EMS record, old EKG, old radiological studies, urgent care reports/EKG's, group home records)? Report findings @ -Yes I reviewed ER visit from 03-08-2024. Patient reporting to the ER with a chief complaint of a fall. Patient requiring transfer to [facility] due to to intracranial hemorrhage. Differential Diagnosis (chest pain, altered mental status, abdominal pain women, abdominal pain men, vaginal bleeding, weakness, fever, dyspnea, syncope, headache, dizziness, GI bleed, back pain, seizure, CVA, palpatations, mental health, musculoskeletal)? @ -Differential Weakness: Hypoglycemia, shock, sepsis, hyponatremia, anemia, infection, MO, ETOH, adverse medicine reaction, overdose, stroke, this is not meant to be an all-inclusive list. EKG interpreted by me (3pts min.). @ -As above X-rays interpreted by me (1pt min.). @ -Chest x-ray interpreted by me negative for acute cardiopulmonary process. CT interpreted by me (1pt min.). @ -CT brain negative for acute intracranial hemorrhage. Age-indeterminate left thalamus hypodense area correlate with CVA. U/S interpreted by me (1pt. min.). @ -None done What testing was considered but not performed or refused? (CT, X-rays, U/S, labs)? Why? @ -None What meds were considered but not given or refused? Why? @ -None Did you discuss the management of the patient with other professionals (professionals i.e. , PA, PIPE CUTTER, lab, RT, psych nurse, social sciences department chair, auto bumper straightener, teacher, quarantine officer, rn case manager hospice)? Give summary @ -No Was smoking cessation discussed for >3mins.? @ -No Was critical care preformed (if so, how long)? @ -No Were there social determinants of health that impacted care today? How? (Homelessness, low income, unemployed, alcoholism, drug addiction, transp ortation, low edu. Level, literacy, decrease access to med. care, penitentiary, rehab)? @ -Patient currently residing at [facility] for rehabilitation. Was there de-escalation of care discussed even if they declined (Discuss DNR or withdrawal of care, Hospice)? DNR status @ -No What co-morbidities impacted this encounter? (DM, HTN, Smoking, COPD, CAD, Cancer, CVA, ARF, Chemo, Hep., AIDS, mental health diagnosis, sleep apnea, morbid obesity)? @ -History of CVA patient is currently on Plavix. Was patient admitted / discharged? Hospital course, mention meds given and route, prescriptions, significant lab abnormalities, going to OR and other pertinent info. @ -Discharge. 89-year-old female presented to the ER with a chief complaint of epistaxis. Patient currently residing at [facility] for rehabilitation due to recent intracranial hemorrhage and stroke. History and physical exam completed. Vitals upon arrival significant for blood pressure 98.5, heart rate 83, respiratory rate 16, blood pressure 113/53, oxygen saturation 97% on room air. Patient no signs of acute distress and nontoxic-appearing. Lung sounds clear to auscultation bilaterally. There is a healing contusion to right periorbital region. No active nosebleed. Bilateral nares patent. No evidence of septal hematoma. No acute neurological findings on exam. Laboratory studies obtained significant for white blood cell count 11.6, hemoglobin 8.3 which appears to be chronic in nature. CMP unimpressive. Urinalysis without evidence of infection. Chest x-ray interpreted by me negative for acute cardiopulmonary process. CT brain significant for an age-indeterminate left thalamus hypodense area correlate for CVA. Patient denying any new neurological symptoms. Patient is also currently on a statin and Plavix. On reevaluation, patient resting comfortably in exam room in no signs acute distress. Patient and son extremely eager for discharge. Results discussed with patient, all questions answered. Advised close follow-up with PCP. Patient discharged stable condition back to [facility]. Son and patient verbally expressed understanding and agreement with care plan. Case discussed with ED attending, Dr. Darling. Undiagnosed new problem with uncertain prognosis? @ -No Drug Therapy requiring intensive monitoring for toxicity (Heparin, Nitro, Insulin, Cardizem)? @ -No Were any procedures done? @ -No Diagnosis/symptom? @ -Epistaxis Acute, or Chronic, or Acute on Chronic? @ -Acute Uncomplicated (without systemic symptoms) or Complicated (systemic symptoms)? @ -Complicated Side effects of treatment? @ -No Exacerbation, Progression, or Severe Exacerbation? @ -No Poses a threat to life or bodily function? How? (Chest pain, [place], MO, pneumonia, PE, COPD, DKA, ARF, appy, cholecystitis, CVA, Diverticulitis, Homicidal, Suicidal, threat to staff... and all critical care pts) @ -No - Lab Data Result diagrams: 04/10/24 20:43 04/10/24 20:43 Lab Results 04/10/24 04/10/24 04/10/24 Range/Units 20:43 20:43 20:43 WBC 11.6 H (3.8-10.6) k/uL RBC 3.05 L (3.80-5.40) m/uL Hgb 8.3 L (11.4-16.0) gm/dL Hct 25.1 L (34.0-46.0) % MCV 82.3 (80.0-100.0) fL MCH 27.1 (25.0-35.0) pg MCHC 33.0 (31.0-37.0) g/dL RDW 15.1 (11.5-15.5) % Plt Count 245 (150-450) k/uL MPV 8.7 Neutrophils % 75 % Lymphocytes % 19 % Monocytes % 5 % Eosinophils % 1 % Basophils % 0 % Neutrophils # 8.7 H (1.3-7.7) k/uL Lymphocytes # 2.2 (1.0-4.8) k/uL Monocytes # 0.5 (0-1.0) k/uL Eosinophils # 0.1 (0-0.7) k/uL Basophils # 0.0 (0-0.2) k/uL PT 10.8 (10.0-12.5) sec INR 1.0 (<1.2) APTT 27.5 (22.0-30.0) sec Sodium 135 L (137-145) mmol/L Potassium 3.1 L (3.5-5.1) mmol/L Chloride 103 (98-107) mmol/L Carbon Dioxide 24 (22-30) mmol/L Anion Gap 8 mmol/L BUN 66 H (7-17) mg/dL Creatinine 1.04 (0.52-1.04) mg/dL Est GFR (CKD-EPI)AfAm 56 (>60 ml/min/1.73 sqM) Est GFR (CKD-EPI)NonAf 48 (>60 ml/min/1.73 sqM) Glucose 132 H (74-99) mg/dL Plasma Lactic Acid Abdulaziz (0.7-2.0) mmol/L Calcium 9.0 (8.4-10.2) mg/dL Total Bilirubin 0.7 (0.2-1.3) mg/dL AST 22 (14-36) U/L ALT 16 (4-34) U/L Alkaline Phosphatase 66 (38-126) U/L Total Protein 5.8 L (6.3-8.2) g/dL Albumin 3.4 L (3.5-5.0) g/dL Urine Color Urine Appearance (Clear) Urine pH (5.0-8.0) Ur Specific [place] (1.001-1.035) Urine Protein (Negative) Urine Glucose (UA) (Negative) Urine Ketones (Negative) Urine Blood (Negative) Urine Nitrite (Negative) Urine Bilirubin (Negative) Urine Urobilinogen (<2.0) mg/dL Ur Leukocyte Esterase (Negative) Urine RBC (0-5) /hpf Urine WBC (0-5) /hpf Ur Squamous Epith Cells (0-4) /hpf Urine Mucus (None) /hpf 04/10/24 04/10/24 Range/Units 20:43 22:24 WBC (3.8-10.6) k/uL RBC (3.80-5.40) m/uL Hgb (11.4-16.0) gm/dL Hct (34.0-46.0) % MCV (80.0-100.0) fL MCH (25.0-35.0) pg MCHC (31.0-37.0) g/dL RDW (11.5-15.5) % Plt Count (150-450) k/uL MPV Neutrophils % % Lymphocytes % % Monocytes % % Eosinophils % % Basophils % % Neutrophils # (1.3-7.7) k/uL Lymphocytes # (1.0-4.8) k/uL Monocytes # (0-1.0) k/uL Eosinophils # (0-0.7) k/uL Basophils # (0-0.2) k/uL PT (10.0-12.5) sec INR (<1.2) APTT (22.0-30.0) sec Sodium (137-145) mmol/L Potassium (3.5-5.1) mmol/L Chloride (98-107) mmol/L Carbon Dioxide (22-30) mmol/L Anion Gap mmol/L BUN (7-17) mg/dL Creatinine (0.52-1.04) mg/dL Est GFR (CKD-EPI)AfAm (>60 ml/min/1.73 sqM) Est GFR (CKD-EPI)NonAf (>60 ml/min/1.73 sqM) Glucose (74-99) mg/dL Plasma Lactic Acid Abdulaziz 1.0 (0.7-2.0) mmol/L Calcium (8.4-10.2) mg/dL Total Bilirubin (0.2-1.3) mg/dL AST (14-36) U/L ALT (4-34) U/L Alkaline Phosphatase (38-126) U/L Total Protein (6.3-8.2) g/dL Albumin (3.5-5.0) g/dL Urine Color Colorless Urine Appearance Clear (Clear) Urine pH 6.5 (5.0-8.0) Ur Specific [place] 1.008 (1.001-1.035) Urine Protein Trace H (Negative) Urine Glucose (UA) Negative (Negative) Urine Ketones Trace H (Negative) Urine Blood Trace H (Negative) Urine Nitrite Negative (Negative) Urine Bilirubin Negative (Negative) Urine Urobilinogen <2.0 (<2.0) mg/dL Ur Leukocyte Esterase Negative (Negative) Urine RBC 3 (0-5) /hpf Urine WBC 1 (0-5) /hpf Ur Squamous Epith Cells 1 (0-4) /hpf Urine Mucus Rare H (None) /hpf - EKG Data -: EKG Interpreted by Me EKG Comments: EKG taken at 20: 49 showing a normal sinus rhythm with an occasional PAC. Right bundle kasey block. No acute ST segment or T wave abnormalities. Ventricular rate 80, FL interval 146, QRS duration 136, QT/QTc 448/485. - Radiology Data Radiology results: report reviewed, image reviewed Disposition Clinical Impression: Epistaxis Disposition: HOME SELF-CARE Condition: Stable Instructions (If sedation given, give patient instructions): Nosebleed (ED) Additional Instructions: Please follow-up with PCP in the next 1 to 2 days. Return to the ER for any new or worsening concerns. Is patient prescribed a controlled substance at d/c from ED?: No Referrals: Carmine Daley MD [Primary Care Provider] - 1-2 days Time of Disposition: 22:53
[2024-04-10 21:27] LABS: Basophils % (A) 0 %; Eosinophils # (A) 0.1 k/uL (0-0.7); Eosinophils % (A) 1 %; HCT 25.1 % (34.0-46.0); HGB 8.3 gm/dL (11.4-16.0); Lymphocytes # (A) 2.2 k/uL (1.0-4.8); Lymphocytes % (A) 19 %; MCH 27.1 pg (25.0-35.0); MCV 82.3 fL (80.0-100.0); Mean Platelet Volume 8.7; Monocytes # (A) 0.5 k/uL (0-1.0); Monocytes % (A) 5 %; Neutrophils # (A) 8.7 k/uL (1.3-7.7); Neutrophils % (A) 75 %; Platelet Count 245 k/uL (150-450); RBC 3.05 m/uL (3.80-5.40); RDW 15.1 % (11.5-15.5); WBC 11.6 k/uL (3.8-10.6)
--- NOTE | 2024-04-10 21:37 | XR ---
EXAMINATION TYPE: XR chest 2V DATE OF EXAM: 04/10/2024 9:30 PM CLINICAL INDICATION:Female, 89 years old with history of weakness; PHH COMPARISON: None TECHNIQUE: XR chest 2V Frontal and lateral views of the chest. FINDINGS: Lungs/Pleura: There is no evidence of pleural effusion, focal consolidation, or pneumothorax. Pulmonary vascularity: Unremarkable. Heart/mediastinum: Cardiomediastinal silhouette is prominent in size. Musculoskeletal: Degenerative changes of the shoulder joints. Other findings: None IMPRESSION: No acute cardiopulmonary disease/process.
[2024-04-10 21:50] LABS: Partial Thromboplastin Time 27.5 sec (22.0-30.0); Prothrombin Time 10.8 sec (10.0-12.5)
[2024-04-10 22:03] LABS: ALT 16 U/L (4-34); AST 22 U/L (14-36); African American GFR (CKD) 56 (>60 ml/min/1.73 sqM); Albumin 3.4 g/dL (3.5-5.0); Alkaline Phosphatase 66 U/L (38-126); Anion Gap 8 mmol/L; Blood Urea Nitrogen 66 mg/dL (7-17); Carbon Dioxide 24 mmol/L (22-30); Chloride 103 mmol/L (98-107); Glucose 132 mg/dL (74-99); Non-African American GFR(CKD) 48 (>60 ml/min/1.73 sqM); Potassium 3.1 mmol/L (3.5-5.1); Sodium 135 mmol/L (137-145); Total Bilirubin 0.7 mg/dL (0.2-1.3); Total Protein 5.8 g/dL (6.3-8.2)
--- NOTE | 2024-04-10 22:09 | CT ---
EXAMINATION TYPE: CT brain wo con CT DLP: 1138 mGycm, Automated exposure control for dose reduction was used. DATE OF EXAM: 04/10/2024 9:58 PM COMPARISON: 03/08/2024. CLINICAL INDICATION:Female, 89 years old with history of nose bleeds recent hemorrhage, TECHNIQUE: Brain: Axial CT images of the brain were obtained with coronal and sagittal reformats created and rev iewed. Contrast used: None. Oral contrast used: None. FINDINGS: Brain: Extra-axial spaces: No abnormal extra-axial fluid collections. Ventricular system: Within normal limits Cerebral parenchyma: Remote injury to the left thalamus. No acute intraparenchymal hemorrhage or mass effect. The henderson-white junction is well differentiated. Cerebellum: Unremarkable. Mass effect: No evidence of midline shift. Intracranial vasculature: unremarkable Soft tissues: Right periorbital edema/hematoma has decreased in size from prior on 03/08/2024. Calvarium/osseous structures: No depressed skull fracture. Paranasal sinuses and mastoid air cells: Mild scattered paranasal sinus disease. Visualized orbits: Bilateral aphakia IMPRESSION: 1. Age-indeterminate, New from prior left thalamus hypodense area correlate for CVA. Consider MRI im aging. 2. Decrease in size of right periorbital hematoma compared to prior
[2024-04-10 22:55] LABS: Appearance,Urine Clear (Clear); Bilirubin,Urine Negative (Negative); Blood,Urine Trace (Negative); Color,Urine Colorless; Glucose,Urine (UA) Negative (Negative); Ketones,Urine Trace (Negative); Leukocyte Esterase,Urine Negative (Negative); Mucus,Urine Rare /hpf; Nitrite,Urine Negative (Negative); PH, Urine 6.5 (5.0-8.0); Protein,Urine Trace (Negative); RBC,Urine 3 /hpf (0-5); Specific Gravity,Urine 1.008 (1.001-1.035); Squamous Epithelial Cell,Urine 1 /hpf (0-4); Urobilinogen,Urine <2.0 mg/dL (<2.0); WBC,Urine 1 /hpf (0-5)
[2024-04-10 23:42] VITALS: BP 118/60; PULSE 84; RESP 17; TEMP 98.4
== END 2024-04-10 23:23 | disposition home or self-care (01) ==
LOC: EC 18:35
DX: R04.0 Epistaxis (principal); Z87.891 Personal history of nicotine dependence; Z88.0 Allergy status to penicillin; Z88.5 Allergy status to narcotic agent; Z86.73 Personal history of transient ischemic attack (TIA), and cerebral infarction without residual deficits
CPT/HCPCS: 36415; 70450; 71046; 80053; 81001; 83605; 85025; 85610; 85730; 93005; 99284

== ENCOUNTER 2024-04-12 17:32 | Observation (INO) | payer MEDICARE, OTHER ==
--- NOTE | 2024-04-12 18:38 | ED ---
Recheck HPI - General Chief Complaint: GI Bleed Stated Complaint: low hemaglobin Time Seen by Provider: 04/12/24 17:36 Source: EMS, RN notes reviewed, old records reviewed Mode of arrival: EMS Limitations: no limitations - History of Present Illness Initial Comments: This is an 89-year-old female to the ER for evaluation today. Patient comes in for lower hemoglobin on recent outpatient lab evaluation concern for GI bleed. Patient has no complaints here in the ER altered secondary to age MD Complaint: abnormal lab (Low hemoglobin) -: unknown Returns Today for: Called Because of Abnormal Lab/Test Symptoms Since Prior Visit: no new symptoms Context: planned re-check, called for abnormal lab result Associated Symptoms: none Treatments Prior to Arrival: other () - Related Data Home Medications Medication Instructions Recorded Confirmed Atorvastatin [Lipitor] 40 mg PO HS@209903/15/24 04/12/24 Clopidogrel [Plavix] 75 mg PO DAILY@79903/15/24 04/12/24 Multivitamins, Thera [Multivitamin 1 tab PO DAILY@79903/15/24 04/12/24 (formulary)] NIFEdipine [Adalat CC] 30 mg PO DAILY@79903/15/24 04/12/24 [place]-3/Dha/Epa/Fish Oil [Fish Oil 1 cap PO DAILY@79903/15/24 04/12/24 1,000 mg Softgel] Acetaminophen [Tylenol 8 Hour] 650 mg PO Q6H PRN 04/12/24 04/12/24 Aspirin EC [Ecotrin Low Dose] 81 mg PO DAILY@79904/12/24 04/12/24 Dextran/Hypromellose/Glycerin 1 drop BOTH EYES BID PRN 04/12/24 04/12/24 [Genteal Tears 0.1%-0.2%-0.3%] Magnesium Hydroxide [Milk of 7,200 mg PO Q48H PRN 04/12/24 04/12/24 Magnesia Concentrate] Menthol [Biofreeze] 1 applic TOPICAL TID@0800,1400,209904/12/24 04/12/24 Na Phos,M-B/Na Phos,Di-Ba [Fleet 133 ml RECTAL DAILY PRN 04/12/24 04/12/24 Adult] Oxymetazoline 0.05% Nasl [place] 2 spray EA NOSTRIL 5XD PRN 04/12/24 04/12/24 [Afrin 0.05% Nasal [place]] Pantoprazole [Protonix] 40 mg PO DAILY@0600 04/12/24 04/12/24 bisacodyL [Dulcolax] 10 mg RECTAL DAILY PRN 04/12/24 04/12/24 cloNIDine HCL [Catapres] 0.1 mg PO Q6H PRN 04/12/24 04/12/24 Previous Rx's Medication Instructions Recorded Losartan [Cozaar] 100 mg PO DAILY 2 Days #30 tab 03/17/24 Oseltamivir [Tamiflu] 30 mg PO BID 5 Days #10 cap 04/15/24 levETIRAcetam [Keppra] 500 mg PO BID@0800,2100 #4 tab 04/15/24 Allergies Allergy/AdvReac Type Severity Reaction Status Date / Time codeine Allergy Swelling Verified 04/12/24 19:36 Penicillins Allergy Rash/Hives Verified 04/12/24 19:36 Review of Systems ROS Statement: Those systems with pertinent positive or pertinent negative responses have been documented in the HPI. ROS Other: All systems not noted in ROS Statement are negative. Past Medical History Past Medical History: CVA/TIA, Dementia, Hyperlipidemia, Hypertension Additional Past Medical History / Comment(s): stroke with brain bleed- 2023, difficulty in walking History of Any Multi-Drug Resistant Organisms: Unobtainable Past Surgical History: Section, Hernia Repair, Orthopedic Surgery Additional Past Surgical History / Comment(s): knee surgery, Smoking Status: Former smoker Past Alcohol Use History: Unable to Obtain Past Drug Use History: Unable to Obtain General Exam Limitations: no limitations General appearance: alert, in no apparent distress Head exam: Present: atraumatic, normocephalic, normal inspection Eye exam: Present: normal appearance, PERRL, EOMI. Absent: scleral icterus, conjunctival injection, periorbital swelling ENT exam: Present: normal exam, mucous membranes moist Neck exam: Present: normal inspection. Absent: tenderness, meningismus, lymphadenopathy Respiratory exam: Present: normal lung sounds bilaterally. Absent: respiratory distress, wheezes, rales, rhonchi, stridor Cardiovascular Exam: Present: regular rate, normal rhythm, normal heart sounds. Absent: systolic murmur, diastolic murmur, rubs, gallop, clicks GI/Abdominal exam: Present: soft, normal bowel sounds. Absent: distended, tenderness, guarding, rebound, rigid Extremities exam: Present: normal inspection, full ROM, normal capillary refill. Absent: tenderness, pedal edema, joint swelling, calf tenderness Back exam: Present: normal inspection Neurological exam: Present: alert, oriented X3, CN II-XII intact Psychiatric exam: Present: normal affect, normal mood Skin exam: Present: warm, dry, intact, normal color. Absent: rash Course Vital Signs 04/12/24 04/12/24 04/12/24 17:38 19:28 21:01 Temperature 98.5 F Pulse Rate 72 68 70 Respiratory 18 16 20 Rate Blood Pressure 136/56 135/54 141/55 O2 Sat by Pulse 98 95 98 Oximetry - Reevaluation(s) Reevaluation #1: 04/12/24 20:05 Records reviewed Reevaluation #2: 04/12/24 20:05 Lab values are found to be abnormal Reevaluation #3: 04/12/24 20:05 Patient informed of results and questions answered Reevaluation #4: Was pt. sent in by a medical professional or institution (, PA, [facility], urgent care, hospital, or group home...) When possible be specific @ -no Did you speak to anyone other than the patient for history (EMS, parent, family, police, friend...)? What history was obtained from this source @ -no Did you review nursing and triage notes (agree or disagree)? Why? @ -agree Are old charts reviewed (outside hosp., previous admission, EMS record, old EKG, old radiological studies, urgent care reports/EKG's, group home records)? Report findings @ -yes Differential Diagnosis (chest pain, altered mental status, abdominal pain women, abdominal pain men, vaginal bleeding, weakness, fever, dyspnea, syncope, headache, dizziness, GI bleed, back pain, seizure, CVA, palpatations, mental health, musculoskeletal)? @ -prior EKG interpreted by me (3pts min.). @ -no X-rays interpreted by me (1pt min.). @ -no CT interpreted by me (1pt min.). @ -no U/S interpreted by me (1pt. min.). @ -no What testing was considered but not performed or refused? (CT, X-rays, U/S, labs)? Why? @ -none What meds were considered but not given or refused? Why? @ -none Did you discuss the management of the patient with other professionals (professionals i.e. , PA, [facility], lab, RT, psych nurse, social work professor, tow motor mechanic, teacher, disability insurance hearing officer, case briefer)? Give summary @ -no Was smoking cessation discussed for >3mins.? @ -no Were there social determinants of health that impacted care today? How? (Homelessness, low income, unemployed, alcoholism, drug addiction, transportation, low edu. Level, literacy, decrease access to med. care, detention, rehab)? @ -none Was there de-escalation of care discussed even if they declined (Discuss DNR or withdrawal of care, Hospice)? DNR status @ -no What co-morbidities impacted this encounter? (DM, HTN, Smoking, COPD, CAD, Cancer, CVA, ARF, Chemo, Hep., AIDS, mental health diagnosis, sleep apnea, morbid obesity)? @ -none Was patient admitted / discharged? Hospital course, mention meds given and route, prescriptions, significant lab abnormalities, going to OR and other pertinent info. @ - 89 female to be admitted for monitoring of hemoglobin with likely GI bleed and abnormal lab values. Patient will admit with GI consultation Admitted Was critical care preformed (if so, how long)? @ -no Undiagnosed new problem with uncertain prognosis? @ -no Drug Therapy requiring intensive monitoring for toxicity (Heparin, Nitro, Insulin, Cardizem)? @ -no Were any procedures done? @ -no Diagnosis/symptom? @ -GI bleed Acute, or Chronic, or Acute on Chronic? @ -Acute Uncomplicated (without systemic symptoms) or Complicated (systemic symptoms)? @ -Complicated Side effects of treatment? @ -no Exacerbation, Progression, or Severe Exacerbation? @ -exacerbation Poses a threat to life or bodily function? How? (Chest pain, [place], [place], pneumonia, PE, COPD, DKA, ARF, appy, cholecystitis, CVA, Diverticulitis, Homicidal, Suicidal, threat to staff... and all critical care pts) @ -Yes with extremes of age Reevaluation #5: differential Weakness: Hypoglycemia, shock, sepsis, hyponatremia, anemia, infection, [place], ETOH, adverse medicine reaction, overdose, stroke, this is not meant to be an all-inclusive list. - Consultations Consultation #1: Spoke with Dr. Daley who agrees to admit this patient Medical Decision Making - Medical Decision Making 89 female to be admitted for monitoring of hemoglobin with likely GI bleed and abnormal lab values. Patient will admit with GI consultation - Lab Data Result diagrams: 04/15/24 04:49 04/15/24 04:49 Lab Results 04/12/24 04/12/24 04/12/24 Range/Units 18:25 18:25 18:25 WBC 8.1 (3.8-10.6) k/uL RBC 2.73 L (3.80-5.40) m/uL Hgb 7.4 L (11.4-16.0) gm/dL Hct 22.6 L (34.0-46.0) % MCV 82.8 (80.0-100.0) fL MCH 27.1 (25.0-35.0) pg MCHC 32.7 (31.0-37.0) g/dL RDW 15.3 (11.5-15.5) % Plt Count 244 (150-450) k/uL MPV 8.8 Neutrophils % 70 % Lymphocytes % 19 % Monocytes % 6 % Eosinophils % 3 % Basophils % 0 % Neutrophils # 5.6 (1.3-7.7) k/uL Lymphocytes # 1.6 (1.0-4.8) k/uL Monocytes # 0.5 (0-1.0) k/uL Eosinophils # 0.2 (0-0.7) k/uL Basophils # 0.0 (0-0.2) k/uL PT >130.0 H (10.0-12.5) sec INR >10.0 H* (<1.2) APTT >200.0 H* (22.0-30.0) sec Sodium 140 (137-145) mmol/L Potassium 3.1 L (3.5-5.1) mmol/L Chloride 112 H (98-107) mmol/L Carbon Dioxide 25 (22-30) mmol/L Anion Gap 3 mmol/L BUN 33 H (7-17) mg/dL Creatinine 1.00 (0.52-1.04) mg/dL Est GFR (CKD-EPI)AfAm 59 (>60 ml/min/1.73 sqM) Est GFR (CKD-EPI)NonAf 51 (>60 ml/min/1.73 sqM) Glucose 91 (74-99) mg/dL Calcium 8.7 (8.4-10.2) mg/dL Magnesium 2.2 (1.6-2.3) mg/dL Total Bilirubin 0.6 (0.2-1.3) mg/dL AST 25 (14-36) U/L ALT 19 (4-34) U/L Alkaline Phosphatase 74 (38-126) U/L Troponin I (0.000-0.034) ng/mL Total Protein 5.5 L (6.3-8.2) g/dL Albumin 3.2 L (3.5-5.0) g/dL Lipase 265 (23-300) U/L Blood Type Blood Type Recheck Bld Type Recheck Status Antibody Screen Crossmatch Spec Expiration Date 04/12/24 04/12/24 04/12/24 Range/Units 18:25 18:30 19:54 WBC (3.8-10.6) k/uL RBC (3.80-5.40) m/uL Hgb (11.4-16.0) gm/dL Hct (34.0-46.0) % MCV (80.0-100.0) fL MCH (25.0-35.0) pg MCHC (31.0-37.0) g/dL RDW (11.5-15.5) % Plt Count (150-450) k/uL MPV Neutrophils % % Lymphocytes % % Monocytes % % Eosinophils % % Basophils % % Neutrophils # (1.3-7.7) k/uL Lymphocytes # (1.0-4.8) k/uL Monocytes # (0-1.0) k/uL Eosinophils # (0-0.7) k/uL Basophils # (0-0.2) k/uL PT 10.7 (10.0-12.5) sec INR 1.0 (<1.2) APTT 23.7 (22.0-30.0) sec Sodium (137-145) mmol/L Potassium (3.5-5.1) mmol/L Chloride (98-107) mmol/L Carbon Dioxide (22-30) mmol/L Anion Gap mmol/L BUN (7-17) mg/dL Creatinine (0.52-1.04) mg/dL Est GFR (CKD-EPI)AfAm (>60 ml/min/1.73 sqM) Est GFR (CKD-EPI)NonAf (>60 ml/min/1.73 sqM) Glucose (74-99) mg/dL Calcium (8.4-10.2) mg/dL Magnesium (1.6-2.3) mg/dL Total Bilirubin (0.2-1.3) mg/dL AST (14-36) U/L ALT (4-34) U/L Alkaline Phosphatase (38-126) U/L Troponin I 0.019 (0.000-0.034) ng/mL Total Protein (6.3-8.2) g/dL Albumin (3.5-5.0) g/dL Lipase (23-300) U/L Blood Type O Positive Blood Type Recheck O Pos Bld Type Recheck Status No Antibody Screen NEGATIVE Crossmatch See Detail Spec Expiration Date 04/15/20242329 Disposition Clinical Impression: Weakness, Anemia Disposition: ADMITTED IP TO THIS [facility] Condition: Fair Is patient prescribed a controlled substance at d/c from ED?: No Time of Disposition: 20:00
[2024-04-12 18:48] LABS: Basophils % (A) 0 %; Eosinophils # (A) 0.2 k/uL (0-0.7); Eosinophils % (A) 3 %; HCT 22.6 % (34.0-46.0); HGB 7.4 gm/dL (11.4-16.0); Lymphocytes # (A) 1.6 k/uL (1.0-4.8); Lymphocytes % (A) 19 %; MCH 27.1 pg (25.0-35.0); MCHC 32.7 g/dL (31.0-37.0); MCV 82.8 fL (80.0-100.0); Mean Platelet Volume 8.8; Monocytes # (A) 0.5 k/uL (0-1.0); Monocytes % (A) 6 %; Neutrophils # (A) 5.6 k/uL (1.3-7.7); Neutrophils % (A) 70 %; Platelet Count 244 k/uL (150-450); RBC 2.73 m/uL (3.80-5.40); RDW 15.3 % (11.5-15.5); WBC 8.1 k/uL (3.8-10.6)
[2024-04-12 18:56] LABS: ALT 19 U/L (4-34); AST 25 U/L (14-36); African American GFR (CKD) 59 (>60 ml/min/1.73 sqM); Albumin 3.2 g/dL (3.5-5.0); Alkaline Phosphatase 74 U/L (38-126); Anion Gap 3 mmol/L; Blood Urea Nitrogen 33 mg/dL (7-17); Calcium 8.7 mg/dL (8.4-10.2); Carbon Dioxide 25 mmol/L (22-30); Chloride 112 mmol/L (98-107); Glucose 91 mg/dL (74-99); Lipase 265 U/L (23-300); Magnesium 2.2 mg/dL (1.6-2.3); Non-African American GFR(CKD) 51 (>60 ml/min/1.73 sqM); Potassium 3.1 mmol/L (3.5-5.1); Sodium 140 mmol/L (137-145); Total Bilirubin 0.6 mg/dL (0.2-1.3); Total Protein 5.5 g/dL (6.3-8.2)
[2024-04-12 19:21] LABS: Prothrombin Time >130.0 sec (10.0-12.5)
[2024-04-12 19:25] LABS: Partial Thromboplastin Time >200.0 sec (22.0-30.0)
[2024-04-12 19:26] LABS: INR >10.0 (<1.2)
[2024-04-12] MEDS ORDERED: NALOXONE 0.4 MG/ML 1 ML VIAL IV PRN (20:03)
[2024-04-12] MEDS ORDERED: MORPHINE SULFATE 4 MG/ML SYRINGE IV PRN (20:03)
[2024-04-12] MEDS ORDERED: ONDANSETRON 4 MG/2 ML VIAL IVP PRN (20:03)
[2024-04-12 20:14] LABS: Partial Thromboplastin Time 23.7 sec (22.0-30.0); Prothrombin Time 10.7 sec (10.0-12.5)
[2024-04-12] MEDS ORDERED: Potassium Replacement Protocol 1 EACH MISC MISCELLANE PRN (20:57)
[2024-04-12] MEDS: PANTOPRAZOLE 40 MG/10 ML VIAL IV SCH (21:00)
[2024-04-12] MEDS: POTASSIUM CHLORIDE ER 20 MEQ TAB.ER PO SCH (21:01)
[2024-04-12] MEDS: SODIUM CHLORIDE 0.9% 1,000 ML IV SCH (21:01)
[2024-04-13] MEDS ORDERED: Potassium Replacement Protocol 1 EACH MISC MISCELLANE PRN (08:05)
--- NOTE | 2024-04-13 09:04 | P.HPIM ---
History of Present Illness H&P Date: 04/13/24 Chief Complaint: Low hemoglobin This is an 89-year-old female with a recent history of a fall and CVA with brain bleed, who had been residing at [facility] for rehab. Reportedly patient was sent to the ER for a low hemoglobin reading on an outpatient lab. Hemoglobin on admission was 7.4. Repeat level for today is not back yet at time of dictation. Patient denies any blood in her stool. Patient denies any chest pain, shortness of breath or nausea. Patient does admit weakness and reports it is hard for her to get around. Further past medical history as noted below. Review of Systems Constitutional: Denies chills, Denies fatigue, Denies fever Cardiovascular: Denies chest pain, Denies dyspnea on exertion Respiratory: Denies cough, Denies dyspnea Gastrointestinal: Denies abdominal pain, Denies coffee ground emesis, Denies melena, Denies nausea, Denies vomiting Musculoskeletal: Denies arm numbness/tingling, Denies leg numbness/tingling Neurological: Reports weakness, Denies headaches Past Medical History Past Medical History: CVA/TIA, Dementia, Hyperlipidemia, Hypertension Additional Past Medical History / Comment(s): stroke with brain bleed- 2023, difficulty in walking History of Any Multi-Drug Resistant Organisms: Unobtainable Past Surgical History: Section, Hernia Repair, Orthopedic Surgery Additional Past Surgical History / Comment(s): knee surgery, Smoking Status: Former smoker Past Alcohol Use History: Unable to Obtain Past Drug Use History: Unable to Obtain Medications and Allergies Home Medications Medication Instructions Recorded Confirmed Type Atorvastatin [Lipitor] 40 mg PO HS@209903/15/24 04/12/24 History Clopidogrel [Plavix] 75 mg PO DAILY@79903/15/24 04/12/24 History Multivitamins, Thera [Multivitamin 1 tab PO DAILY@79903/15/24 04/12/24 History (formulary)] NIFEdipine [Adalat CC] 30 mg PO DAILY@79903/15/24 04/12/24 History [place]-3/Dha/Epa/Fish Oil [Fish Oil 1 cap PO DAILY@79903/15/24 04/12/24 History 1,000 mg Softgel] levETIRAcetam [Keppra] 500 mg PO BID@03/15/2404/12/24 History Losartan [Cozaar] 100 mg PO DAILY 2 Days #30 tab 03/17/24 04/12/24 Rx Acetaminophen [Tylenol 8 Hour] 650 mg PO Q6H PRN 04/12/24 04/12/24 History Aspirin EC [Ecotrin Low Dose] 81 mg PO DAILY@0800 04/12/24 04/12/24 History Dextran/Hypromellose/Glycerin 1 drop BOTH EYES BID PRN 04/12/24 04/12/24 History [Genteal Tears 0.1%-0.2%-0.3%] Magnesium Hydroxide [Milk of 7,200 mg PO Q48H PRN 04/12/24 04/12/24 History Magnesia Concentrate] Menthol [Biofreeze] 1 applic TOPICAL TID@0800,1400,209904/12/24 04/12/24 History Na Phos,M-B/Na Phos,Di-Ba [Fleet 133 ml RECTAL DAILY PRN 04/12/24 04/12/24 History Adult] Oxymetazoline 0.05% Nasl [place] 2 spray EA NOSTRIL 5XD PRN 04/12/24 04/12/24 History [Afrin 0.05% Nasal [place]] Pantoprazole [Protonix] 40 mg PO DAILY@0604/12/24 04/12/24 History bisacodyL [Dulcolax] 10 mg RECTAL DAILY PRN 04/12/24 04/12/24 History cloNIDine HCL [Catapres] 0.1 mg PO Q6H PRN 04/12/24 04/12/24 History Allergies Allergy/AdvReac Type Severity Reaction Status Date / Time codeine Allergy Swelling Verified 04/12/24 19:36 Penicillins Allergy Rash/Hives Verified 04/12/24 19:36 Physical Exam Vitals: Vital Signs Temp Pulse Pulse Resp BP BP Pulse Ox 04/13/24 07:00 98.5 F 72 16 169/83 97 04/13/24 02:25 99.3 F 77 17 152/69 97 04/12/24 21:46 98.2 F 67 75 18 146/48 154/57 98 04/12/24 21:01 70 20 141/55 98 04/12/24 19:28 68 16 135/54 95 04/12/24 17:38 98.5 F 72 18 136/56 98 Intake and Output 04/12/24 04/13/24 04/13/24 22:59 06:59 14:59 Output Total 300 Balance -300 Output: Urine 300 Other: Voiding Method Diaper External Catheter Weight 61.689 kg - Constitutional General appearance: cooperative, no acute distress - EENT Eyes: PERRLA - Neck Neck: no lymphadenopathy, normal ROM, no rigidity - Respiratory Respiratory: bilateral: CTA - Cardiovascular Rhythm: regular Heart sounds: normal: S1, S2 - Gastrointestinal General gastrointestinal: soft, no tenderness - Integumentary Integumentary: normal, normal turgor - Musculoskeletal Musculoskeletal: generalized weakness - Psychiatric Psychiatric: A&O x's 3 Results CBC & Chem 7: 04/12/24 18:25 04/12/24 18:25 Labs: Abnormal Lab Results - Last 24 Hours (Table) 04/12/24 04/12/24 04/12/24 Range/Units 18:25 18:25 18:25 RBC 2.73 L (3.80-5.40) m/uL Hgb 7.4 L (11.4-16.0) gm/dL Hct 22.6 L (34.0-46.0) % PT >130.0 H (10.0-12.5) sec INR >10.0 H* (<1.2) APTT >200.0 H* (22.0-30.0) sec Potassium 3.1 L (3.5-5.1) mmol/L Chloride 112 H (98-107) mmol/L BUN 33 H (7-17) mg/dL Total Protein 5.5 L (6.3-8.2) g/dL Albumin 3.2 L (3.5-5.0) g/dL Assessment and Plan (1) Anemia Current Visit: Yes Status: Acute Code(s): D64.9 - ANEMIA, UNSPECIFIED SNOMED Code(s): 846893086 (2) Weakness Current Visit: Yes Status: Acute Code(s): R53.1 - WEAKNESS SNOMED Code(s): 96602089 (3) Hyperlipidemia Current Visit: Yes Status: Acute Code(s): E78.5 - HYPERLIPIDEMIA, UNSPECIF IED SNOMED Code(s): 82031279 (4) History of CVA (cerebrovascular accident) Current Visit: Yes Status: Acute Code(s): Z86.73 - PRSNL HX OF TIA (TIA), AND CEREB INFRC W/O RESID DEFICITS SNOMED Code(s): 315424818 (5) Hypertension Current Visit: No Status: Acute Code(s): I10 - ESSENTIAL (PRIMARY) HYPERTENSION SNOMED Code(s): 82516914 (6) Recent cerebral hemorrhage Current Visit: No Status: Acute Code(s): Z86.73 - PRSNL HX OF TIA (TIA), AND CEREB INFRC W/O RESID DEFICITS SNOMED Code(s): 304458143 (7) Unable to ambulate Current Visit: No Status: Acute Code(s): R26.2 - DIFFICULTY IN WALKING, NOT ELSEWHERE CLASSIFIED SNOMED Code(s): 472374920 Plan: Will keep patient n.p.o. until seen by surgeon Hold home meds until seen by surgeon Patient seen and evaluated by nurse practitioner, physician in agreement with plan
[2024-04-13 09:47] LABS: ALT 18 U/L (8-44); AST 22 U/L (13-35); Albumin 3.4 g/dL (3.8-4.9); Albumin/Globulin Ratio 1.89 Ratio (1.60-3.17); Alkaline Phosphatase 58 U/L (41-126); BUN/Creat Ratio 25.11 Ratio (12.00-20.00); Blood Urea Nitrogen 22.6 mg/dL (9.0-27.0); Calcium 8.2 mg/dL (8.7-10.3); Carbon Dioxide 21.6 mmol/L (21.6-31.8); Chloride 112 mmol/L (96-109); Globulin 1.8 g/dL (1.6-3.3); Glucose 83 mg/dL (70-110); Magnesium 2.1 mg/dL (1.5-2.4); Phosphorus 2.9 mg/dL (2.4-5.1); Potassium 3.7 mmol/L (3.5-5.5); Sodium 144 mmol/L (135-145); Total Bilirubin 0.3 mg/dL (0.3-1.2); Total Protein 5.2 g/dL (6.2-8.2)
[2024-04-13 10:17] LABS: Basophils # (A) 0.03 X 10*3/uL (0.00-0.10); Basophils % (A) 0.4 %; Eosinophils # (A) 0.22 X 10*3/uL (0.04-0.35); Eosinophils % (A) 3.1 %; HCT 20.4 % (37.2-46.3); HGB 6.5 g/dL (12.0-15.0); Lymphocytes # (A) 1.49 X 10*3/uL (0.90-5.00); Lymphocytes % (A) 21.3 %; MCH 26.3 pg (27.0-32.0); MCHC 31.9 g/dL (32.0-37.0); MCV 82.6 FL (80.0-97.0); Mean Platelet Volume 10.8 FL (9.5-12.2); Monocytes # (A) 0.53 X 10*3/uL (0.20-1.00); Monocytes % (A) 7.6 %; NRBC Per 100 WBC 0 X 10*3/uL (0.00-0.01); Neutrophils # (A) 4.71 X 10*3/uL (1.80-7.70); Neutrophils % (A) 67.3 %; Platelet Count 220 X 10*3/uL (140-440); RBC 2.47 X 10*6/uL (4.10-5.20); RDW 15.3 % (11.5-14.5)
[2024-04-13] MEDS ORDERED: bisacodyL 10 MG SUPP RECTAL PRN (13:47)
[2024-04-13] MEDS ORDERED: OXYMETAZOLINE 0.05% NASL SPRAY 1 SPRAY BOTTLE EA NOSTRIL PRN (13:47)
[2024-04-13] MEDS ORDERED: NA PHOS,M-B/NA PHOS,DI-BA 133 ML ENEMA RECTAL PRN (13:47)
[2024-04-13] MEDS: LOSARTAN 50 MG TAB PO SCH (14:32)
--- NOTE | 2024-04-13 14:44 | P.GSCN ---
History of Present Illness Consult date: 04/13/24 History of present illness: CHIEF COMPLAINT: Low hemoglobin outpatient HISTORY OF PRESENT ILLNESS: This is a 89-year-old female who was found to have a low hemoglobin lab result outpatient. She was brought into the ER for evaluation for possible GI bleed. Hemoglobin was 6.9 outpatient. She is on Plavix at the retirement. Patient had a recent CVA with brain bleed. She also was recently in the ER for nosebleeds on April 10. Patient reports no blood in her stools or melanotic stools. She denies any abdominal pain. She denies any nausea or vomiting. Hemoglobin did drop from 7.4-6.5. She is receiving a unit of blood today. PAST MEDICAL HISTORY: See below PAST SURGICAL HISTORY: See below MEDICATIONS: See below ALLERGIES: See below SOCIAL HISTORY: No illicit drug use. REVIEW OF SYSTEMS: CONSTITUTIONAL: Denies fever or chills. HEENT: Denies blurred vision, vision changes, or eye pain. Denies hemoptysis CARDIOVASCULAR: Denies chest pain or pressure. RESPIRATORY: No shortness of breath. GASTROINTESTINAL: See HPI for pertinent findings HEMATOLOGIC: Denies bleeding disorders. GENITOURINARY: Denies any blood in urine or increased urinary frequency. SKIN: Denies pruitis. Denies rash. PHYSICAL EXAM: VITAL SIGNS: Reviewed GENERAL: Well-developed in no acute distress. HEENT: Bruising noted around right eye ABDOMEN: Soft. Nontender nondistended NEUROLOGIC: awake and alert. slightly confused. LABORATORY DATA: WBC 7.0 Hgb 7.4 down to 6.5 platelets 220 INR 10 down to 1.0 without treatment Sodium is 144 potassium is 3.7 creatinine 0.9 IMAGING: ASSESSMENT: 1. Anemia with no active signs of GI bleed 2. Recent epistaxis 3. Recent CVA with brain bleed PLAN: -Further recommendations forthcoming per surgeon -Agree with blood transfusion for hgb 6.5 -Hold Plavix -Resume regular diet -Continue to monitor hemoglobin -Continue to monitor for any signs or symptoms of bleeding Physician Mobile Nurse note has been reviewed by physician. Signing provider agrees with the documented findings, assessment, and plan of care. I have personally seen and examined the patient, reviewed the SUBWAY REPAIR SUPERVISOR /PAs history, exam and MDM and agree with the assessment and plan as written. Based on total visit time, I have performed more than 50% of the visit. As above: Patient has significant anemia. She did have episode of epistaxis recently. Recent stool was negative for occult blood. She has not visualized any melanotic stools or bright red blood. Patient is not interested in endoscopy. Given her advanced age observation is not unreasonable however if anemia persists may require endoscopy both upper and lower. Recheck labs tomorrow. Past Medical History Past Medical History: CVA/TIA, Dementia, Hyperlipidemia, Hypertension Additional Past Medical History / Comment(s): stroke with brain bleed- 2023, difficulty in walking History of Any Multi-Drug Resistant Organisms: Unobtainable Past Surgical History: Section, Hernia Repair, Orthopedic Surgery Additional Past Surgical History / Comment(s): knee surgery, Smoking Status: Former smoker Past Alcohol Use History: Unable to Obtain Past Drug Use History: Unable to Obtain Medications and Allergies Home Medications Medication Instructions Recorded Confirmed Type Atorvastatin [Lipitor] 40 mg PO HS@209903/15/24 04/12/24 History Clopidogrel [Plavix] 75 mg PO DAILY@79903/15/24 04/12/24 History Multivitamins, Thera [Multivitamin 1 tab PO DAILY@79903/15/24 04/12/24 History (formulary)] NIFEdipine [Adalat CC] 30 mg PO DAILY@79903/15/24 04/12/24 History [place]-3/Dha/Epa/Fish Oil [Fish Oil 1 cap PO DAILY@79903/15/24 04/12/24 History 1,000 mg Softgel] levETIRAcetam [Keppra] 500 mg PO BID@0800,2100 03/15/24 04/12/24 History Losartan [Cozaar] 100 mg PO DAILY 2 Days #30 tab 03/17/24 04/12/24 Rx Acetaminophen [Tylenol 8 Hour] 650 mg PO Q6H PRN 04/12/24 04/12/24 History Aspirin EC [Ecotrin Low Dose] 81 mg PO DAILY@79904/12/24 04/12/24 History Dextran/Hypromellose/Glycerin 1 drop BOTH EYES BID PRN 04/12/24 04/12/24 History [Genteal Tears 0.1%-0.2%-0.3%] Magnesium Hydroxide [Milk of 7,200 mg PO Q48H PRN 04/12/24 04/12/24 History Magnesia Concentrate] Menthol [Biofreeze] 1 applic TOPICAL TID@0800,1400,2100 04/12/24 04/12/24 History Na Phos,M-B/Na Phos,Di-Ba [Fleet 133 ml RECTAL DAILY PRN 04/12/24 04/12/24 History Adult] Oxymetazoline 0.05% Nasl [place] 2 spray EA NOSTRIL 5XD PRN 04/12/24 04/12/24 History [Afrin 0.05% Nasal [place]] Pantoprazole [Protonix] 40 mg PO DAILY@0600 04/12/24 04/12/24 History bisacodyL [Dulcolax] 10 mg RECTAL DAILY PRN 04/12/24 04/12/24 History cloNIDine HCL [Catapres] 0.1 mg PO Q6H PRN 04/12/24 04/12/24 History Allergies Allergy/AdvReac Type Severity Reaction Status Date / Time codeine Allergy Swelling Verified 04/12/24 19:36 Penicillins Allergy Rash/Hives Verified 04/12/24 19:36 Surgical - Exam Vital Signs Temp Pulse Resp BP Pulse Ox 98.5 F 72 18 136/56 98 04/12/24 17:38 04/12/24 17:38 04/12/24 17:38 04/12/24 17:38 04/12/24 17:38 Results - Labs 04/13/24 04:13 04/13/24 04:13 Abnormal Lab Results - Last 24 Hours (Table) 04/12/24 04/12/24 04/12/24 Range/Units 18:25 18:25 18:25 RBC 2.73 L (3.80-5.40) m/uL Hgb 7.4 L (11.4-16.0) gm/dL Hct 22.6 L (34.0-46.0) % MCH (27.0-32.0) pg MCHC (32.0-37.0) g/dL RDW (11.5-14.5) % PT >130.0 H (10.0-12.5) sec INR >10.0 H* (<1.2) APTT >200.0 H* (22.0-30.0) sec Potassium 3.1 L (3.5-5.1) mmol/L Chloride 112 H (98-107) mmol/L BUN 33 H (7-17) mg/dL BUN/Creatinine Ratio (12.00-20.00) Ratio Calcium (8.7-10.3) mg/dL Total Protein 5.5 L (6.3-8.2) g/dL Albumin 3.2 L (3.5-5.0) g/dL Crossmatch 04/12/24 04/13/24 04/13/24 Range/Units 18:30 04:13 04:13 RBC 2.47 L (3.80-5.40) m/uL Hgb 6.5 A* (11.4-16.0) gm/dL Hct 20.4 L (34.0-46.0) % MCH 26.3 L (27.0-32.0) pg MCHC 31.9 L (32.0-37.0) g/dL RDW 15.3 H (11.5-14.5) % PT (10.0-12.5) sec INR (<1.2) APTT (22.0-30.0) sec Potassium (3.5-5.1) mmol/L Chloride 112 H (98-107) mmol/L BUN (7-17) mg/dL BUN/Creatinine Ratio 25.11 H (12.00-20.00) Ratio Calcium 8.2 L (8.7-10.3) mg/dL Total Protein 5.2 L (6.3-8.2) g/dL Albumin 3.4 L (3.5-5.0) g/dL Crossmatch See Detail Diabetes panel 04/12/24 04/13/24 Range/Units 18:25 04:13 Sodium 140 144 (137-145) mmol/L Potassium 3.1 L 3.7 (3.5-5.1) mmol/L Chloride 112 H 112 H (98-107) mmol/L Carbon Dioxide 25 21.6 (22-30) mmol/L BUN 33 H 22.6 (7-17) mg/dL Creatinine 1.00 0.9 (0.52-1.04) mg/dL Glucose 91 83 (74-99) mg/dL Calcium 8.7 8.2 L (8.4-10.2) mg/dL AST 25 22 (14-36) U/L ALT 19 18 (4-34) U/L Alkaline Phosphatase 74 58 (38-126) U/L Total Protein 5.5 L 5.2 L (6.3-8.2) g/dL Albumin 3.2 L 3.4 L (3.5-5.0) g/dL Calcium panel 04/12/24 04/13/24 Range/Units 18:25 04:13 Calcium 8.7 8.2 L (8.4-10.2) mg/dL Phosphorus 2.9 (2.4-5.1) mg/dL Albumin 3.2 L 3.4 L (3.5-5.0) g/dL Pituitary panel 04/12/24 04/13/24 Range/Units 18:25 04:13 Sodium 140 144 (137-145) mmol/L Potassium 3.1 L 3.7 (3.5-5.1) mmol/L Chloride 112 H 112 H (98-107) mmol/L Carbon Dioxide 25 21.6 (22-30) mmol/L BUN 33 H 22.6 (7-17) mg/dL Creatinine 1.00 0.9 (0.52-1.04) mg/dL Glucose 91 83 (74-99) mg/dL Calcium 8.7 8.2 L (8.4-10.2) mg/dL Adrenal panel 04/12/24 04/13/24 Range/Units 18:25 04:13 Sodium 140 144 (137-145) mmol/L Potassium 3.1 L 3.7 (3.5-5.1) mmol/L Chloride 112 H 112 H (98-107) mmol/L Carbon Dioxide 25 21.6 (22-30) mmol/L BUN 33 H 22.6 (7-17) mg/dL Creatinine 1.00 0.9 (0.52-1.04) mg/dL Glucose 91 83 (74-99) mg/dL Calcium 8.7 8.2 L (8.4-10.2) mg/dL Total Bilirubin 0.6 0.3 (0.2-1.3) mg/dL AST 25 22 (14-36) U/L ALT 19 18 (4-34) U/L Alkaline Phosphatase 74 58 (38-126) U/L Total Protein 5.5 L 5.2 L (6.3-8.2) g/dL Albumin 3.2 L 3.4 L (3.5-5.0) g/dL
[2024-04-13] MEDS: METHYL SALICYLATE-MENTHOL OINT (3 OZ TUBE) TOPICAL SCH (17:58)
[2024-04-13] MEDS: levETIRAcetam 500 MG TAB PO SCH (20:36)
[2024-04-13] MEDS: ATORVASTATIN 40 MG TAB PO SCH (20:36)
[2024-04-13] MEDS ORDERED: amLODIPine 5 MG TAB PO SCH (21:15)
[2024-04-13] MEDS: cloNIDine HCL 0.1 MG TAB PO PRN (21:20)
[2024-04-14] MEDS ORDERED: NIFEdipine XL 30 MG TAB.ER.24 PO SCH (08:00)
[2024-04-14 08:02] VITALS: RESP 16
[2024-04-14 08:23] LABS: HCT 25.4 % (37.2-46.3); HGB 8.4 g/dL (12.0-15.0); MCH 27.8 pg (27.0-32.0); MCHC 33.1 g/dL (32.0-37.0); MCV 84.1 FL (80.0-97.0); Mean Platelet Volume 10.8 FL (9.5-12.2); NRBC Per 100 WBC 0 X 10*3/uL (0.00-0.01); Platelet Count 221 X 10*3/uL (140-440); RBC 3.02 X 10*6/uL (4.10-5.20); RDW 14.6 % (11.5-14.5); WBC 6.73 X 10*3/uL (4.50-10.00)
--- NOTE | 2024-04-14 08:35 | P.PN ---
Subjective Progress Note Date: 04/14/24 Principal diagnosis: Anemia with hypertension. Patient is an 89-year-old white female who had a remote fall. She has been transferred from [facility] for appropriate anemia. The patient has required 1 unit PRBC. The patient is still weak. We will reinstitute physical therapy today. Appreciate surgical input. CBC pending. Objective - Vital Signs Vital signs: Vital Signs Temp 98 F 04/14/24 07:00 Pulse 66 04/14/24 07:00 Resp 16 04/14/24 07:00 BP 176/71 04/14/24 07:00 Pulse Ox 98 04/14/24 07:00 FiO2 Intake & Output 04/13/24 04/14/24 04/14/24 18:59 06:59 18:59 Intake Total 428 Balance 428 Intake: Oral 118 Blood Product 310 Rc As-1 Unit 310 [id number] Other: Voiding Method Diaper Diaper External Catheter External Catheter # Voids 1 4 - Constitutional General appearance: Present: cooperative, no acute distress - EENT Eyes: Absent: abnormal pupil - Respiratory Respiratory: bilateral: diminished - Cardiovascular Rhythm: regular Heart sounds: normal: S1, S2 Abnormal Heart Sounds: Absent: S3 Gallop - Gastrointestinal General gastrointestinal: Present: soft. Absent: tenderness - Neurologic Neurologic: Present: CNII-XII intact - Musculoskeletal Musculoskeletal: Present: generalized weakness - Labs CBC & Chem 7: 04/14/24 04:52 04/13/24 04:13 Labs: Abnormal Lab Results - Last 24 Hours (Table) 04/12/24 04/13/24 04/13/24 Range/Units 18:30 04:13 04:13 RBC 2.47 L (4.10-5.20) X 10*6/uL Hgb 6.5 A* (12.0-15.0) g/dL Hct 20.4 L (37.2-46.3) % MCH 26.3 L (27.0-32.0) pg MCHC 31.9 L (32.0-37.0) g/dL RDW 15.3 H (11.5-14.5) % Chloride 112 H (96-109) mmol/L BUN/Creatinine Ratio 25.11 H (12.00-20.00) Ratio Calcium 8.2 L (8.7-10.3) mg/dL Total Protein 5.2 L (6.2-8.2) g/dL Albumin 3.4 L (3.8-4.9) g/dL Crossmatch See Detail 04/14/24 Range/Units 04:52 RBC 3.02 L (4.10-5.20) X 10*6/uL Hgb 8.4 L (12.0-15.0) g/dL Hct 25.4 L (37.2-46.3) % MCH (27.0-32.0) pg MCHC (32.0-37.0) g/dL RDW 14.6 H (11.5-14.5) % Chloride (96-109) mmol/L BUN/Creatinine Ratio (12.00-20.00) Ratio Calcium (8.7-10.3) mg/dL Total Protein (6.2-8.2) g/dL Albumin (3.8-4.9) g/dL Crossmatch Assessment and Plan (1) Anemia Current Visit: Yes Status: Acute Code(s): D64.9 - ANEMIA, UNSPECIFIED SNOMED Code(s): 477430562 (2) History of CVA (cerebrovascular accident) Current Visit: Yes Status: Acute Code(s): Z86.73 - PRSNL HX OF TIA (TIA), AND CEREB INFRC W/O RESID DEFICITS SNOMED Code(s): 726770302 (3) Hyperlipidemia Current Visit: Yes Status: Acute Code(s): E78.5 - HYPERLIPIDEMIA, UNSPECIFIED SNOMED Code(s): 90996230 (4) Weakness Current Visit: Yes Status: Acute Code(s): R53.1 - WEAKNESS SNOMED Code(s): 16297749 (5) Recent cerebral hemorrhage Current Visit: No Status: Acute Code(s): Z86.73 - PRSNL HX OF TIA (TIA), AND CEREB INFRC W/O RESID DEFICITS SNOMED Code(s): 824344871 Plan: Reinstitute physical therapy. Check CBC in a.m. status post 1 unit PRBC. Appreciate general surgery input. Prognosis is guarded. Time with Patient: Greater than 30
[2024-04-14 08:53] LABS: ALT 18 U/L (8-44); AST 22 U/L (13-35); Albumin 3.3 g/dL (3.8-4.9); Albumin/Globulin Ratio 1.83 Ratio (1.60-3.17); Alkaline Phosphatase 57 U/L (41-126); BUN/Creat Ratio 13.62 Ratio (12.00-20.00); Blood Urea Nitrogen 10.9 mg/dL (9.0-27.0); Calcium 8.3 mg/dL (8.7-10.3); Carbon Dioxide 21.7 mmol/L (21.6-31.8); Chloride 110 mmol/L (96-109); Globulin 1.8 g/dL (1.6-3.3); Glucose 92 mg/dL (70-110); Potassium 3.4 mmol/L (3.5-5.5); Sodium 141 mmol/L (135-145); Total Bilirubin 0.5 mg/dL (0.3-1.2); Total Protein 5.1 g/dL (6.2-8.2)
[2024-04-14] MEDS: MULTIVITAMINS, THERA 1 EACH TAB PO SCH (09:33)
[2024-04-14] MEDS: ARTIFICIAL TEARS-HYPROMELLOSE DROPS 15 ML BTL BOTH EYES PRN (09:34)
[2024-04-14] MEDS: NIFEdipine XL 30 MG TAB.ER.24 PO SCH (09:34)
--- NOTE | 2024-04-14 13:06 | P.PN ---
Subjective Progress Note Date: 04/14/24 CHIEF COMPLAINT: Anemia HISTORY OF PRESENT ILLNESS: Patient mid to the hospital with anemia. She has had at no active GI bleeding. Stool for occult blood outpatient reported as negative. She did receive a unit of blood yesterday and hemoglobin came up from 6.5-8.4. Potassium 3.4 PHYSICAL EXAM: VITAL SIGNS: Reviewed. GENERAL: Well-developed in no acute distress. ABDOMEN: Soft. Nondistended. Nontender. NEUROLOGIC: Alert and oriented. Cranial nerves II through XII grossly intact. ASSESSMENT: 1. Anemia with no active signs of GI bleed 2. Recent epistaxis 3. Recent CVA with brain bleed PLAN: -No plans for endoscopy at this time. Patient is not interested in endoscopy. -Patient can be discharge from surgical standpoint when medically cleared -Will replace potassium Physician Beamer Helper note has been reviewed by physician. Signing provider agrees with the documented findings, assessment, and plan of care. I have personally seen and examined the patient, reviewed the TREE DEADENER /PAs history, exam and MDM and agree with the assessment and plan as written. Based on total visit time, I have performed more than 50% of the visit. As above: Patient feels well. Hemoglobin improved. No abdominal pain. No rectal bleeding. Continue regular diet. Will sign off at this time. Reconsult if needed or if patient agrees to endoscopy. Objective - Vital Signs Vital signs: Vital Signs Temp 98 F 04/14/24 07:00 Pulse 66 04/14/24 07:00 Resp 16 04/14/24 09:33 BP 176/71 04/14/24 07:00 Pulse Ox 98 04/14/24 07:00 FiO2 Intake & Output 04/13/24 04/14/24 04/14/24 18:59 06:59 18:59 Intake Total 428 180 Balance 428 180 Intake: Oral 118 180 Blood Product 310 Rc As-1 Unit 310 [id number] Other: Voiding Method Diaper Diaper Diaper External Catheter External Catheter External Catheter # Voids 1 4 - Labs CBC & Chem 7: 04/14/24 04:52 04/14/24 04:52 Labs: Abnormal Lab Results - Last 24 Hours (Table) 04/12/24 04/14/24 04/14/24 Range/Units 18:30 04:52 04:52 RBC 3.02 L (4.10-5.20) X 10*6/uL Hgb 8.4 L (12.0-15.0) g/dL Hct 25.4 L (37.2-46.3) % RDW 14.6 H (11.5-14.5) % Potassium 3.4 L (3.5-5.5) mmol/L Chloride 110 H (96-109) mmol/L Calcium 8.3 L (8.7-10.3) mg/dL Total Protein 5.1 L (6.2-8.2) g/dL Albumin 3.3 L (3.8-4.9) g/dL Crossmatch See Detail
[2024-04-14] MEDS: NON FORMULARY DRUG (Omega-3/Dha/Epa/Fish Oil [Fish Oil 1,000 Mg Softgel] 1 EACH Capsule) PO SCH (13:19)
[2024-04-14] MEDS: hydrALAZINE HCL 25 MG TAB PO SCH (13:20)
[2024-04-14] MEDS: POTASSIUM CHLORIDE ER 20 MEQ TAB.ER PO STA (13:20)
[2024-04-14] MEDS: OSELTAMIVIR 30 MG CAP PO SCH (18:00)
[2024-04-15 09:09] VITALS: BP 150/56; PULSE 78; TEMP 98.6
[2024-04-15 10:04] LABS: HCT 26.9 % (37.2-46.3); HGB 8.7 g/dL (12.0-15.0); MCHC 32.3 g/dL (32.0-37.0); MCV 83.5 FL (80.0-97.0); Mean Platelet Volume 10.4 FL (9.5-12.2); NRBC Per 100 WBC 0 X 10*3/uL (0.00-0.01); Platelet Count 225 X 10*3/uL (140-440); RBC 3.22 X 10*6/uL (4.10-5.20); RDW 14.7 % (11.5-14.5); WBC 8.13 X 10*3/uL (4.50-10.00)
--- NOTE | 2024-04-15 11:01 | P.DS ---
Providers Date of admission: 04/12/24 20:03 Attending physician: Carmine Daley Primary care physician: Carmine Daley Hospital Course: Final Diagnosis Recent CVA with brain bleed Anemia with no signs of active GI bleeding Recent epistaxis could be the cause for the anemia patient received 1 unit of packed red blood cells and is now remained stable at 8.4 and 8.7 hemoglobin. Positive influenza from the halfway on course of tamiflu patient will receive supportive care. No sepsis. Underlying dementia Hypertension continues on losartan Hyperlipidemia Full Code Discharge Disposition Patient is stable for return to [facility]. Continues to rep ort significant weakness and would benefit from further physical therapy on discharge. Patient to resume all active home medications. Patient to follow-up with general surgery outpatient as needed. There is been no signs of active bleeding this hospital stay and hemoglobin has remained stable for the last 2 days. Continue course of Tamiflu. Would recommend to repeat blood work in 2 to 3 days. Patient to follow-up with her PCP Dr. Yaniv Daley in 2 to 3 days. Hospital Course This is an 89-year-old female with a recent history of a fall and CVA with brain bleed, who had been residing at [facility] for rehab. Reportedly patient was sent to the ER for a low hemoglobin reading on an outpatient lab. Hemoglobin on admission was 7.4. Patient denies any blood in her stool. Patient denies any chest pain, shortness of breath or nausea. Patient does admit weakness and reports it is hard for her to get around. Patient's hemoglobin was found to be 6.5 she did receive 1 unit of packed red blood cells and her hemoglobin has been now stable at 8.4 and 8.7 with no signs of active bleeding at this time. Patient's renal function has normalized with a BUN of 10.9 and a creatinine of 0.8, potassium 3.4 sodium 141. She is currently alert and oriented x 3 with moments of confusion. Patient is not having any nausea vomiting or diarrhea no shortness of breath no chest pain no dizziness or lightheadedness. Patient was found to be positive for influenza at the halfway and has been started on Tamiflu by her primary care provider Dr. Daely. We would recommend to continue a course of Tamiflu for the next 5 days and any supportive care this patient needs she is currently not having any shortness of breath she is not having any fever she has no elevated white blood cell count and she is on room air. Was evaluated by general surgery for the anemia patient has declined any endoscopy and was cleared by general surgery for discharge and patient can follow-up in the office as needed. Please see medication reconciliation for a list of current medications. Thank you for allowing us to participate in the care of this patient. The impression and plan of care has been dictated by Faina Rogers, Nurse Practitioner as directed. Dr. Yadira MD I have performed a history and physical examination and medical decision making of this patient, discussed the same with the dictator, and agree with the dictators assessment and plan as written, documented as a scribe. Based on total visit time, I have performed more than 50% of this visit. Patient Condition at Discharge: Fair Plan - Discharge Summary New Discharge Prescriptions: New Oseltamivir [Tamiflu] 30 mg PO BID 5 Days #10 cap Continue Multivitamins, Thera [Multivitamin (formulary)] 1 tab PO DAILY@0800 Atorvastatin [Lipitor] 40 mg PO HS@2100 Acetaminophen [Tylenol 8 Hour] 650 mg PO Q6H PRN PRN Reason: General Discomfort Pantoprazole [Protonix] 40 mg PO DAILY@0600 Magnesium Hydroxide [Milk of Magnesia Concentrate] 7,200 mg PO Q48H PRN PRN Reason: Constipation levETIRAcetam [Keppra] 500 mg PO BID@0800,2100 #4 tab [place]-3/Dha/Epa/Fish Oil [Fish Oil 1,000 mg Softgel] 1 cap PO DAILY@0800 Clopidogrel [Plavix] 75 mg PO DAILY@0800 NIFEdipine [Adalat CC] 30 mg PO DAILY@0800 Losartan [Cozaar] 100 mg PO DAILY 2 Days #30 tab cloNIDine HCL [Catapres] 0.1 mg PO Q6H PRN PRN Reason: SYSTOLIC OVER 150 bisacodyL [Dulcolax] 10 mg RECTAL DAILY PRN PRN Reason: Constipation Na Phos,M-B/Na Phos,Di-Ba [Fleet Adult] 133 ml RECTAL DAILY PRN PRN Reason: Constipation Dextran/Hypromellose/Glycerin [Genteal Tears 0.1%-0.2%-0.3%] 1 drop BOTH EYES BID PRN PRN Reason: Dry Eye(S) Oxymetazoline 0.05% Nasl [place] [Afrin 0.05% Nasal [place]] 2 spray EA NOSTRIL 5XD PRN PRN Reason: NOSE BLEED Menthol [Biofreeze] 1 applic TOPICAL TID@0800,1400,2099 Aspirin EC [Ecotrin Low Dose] 81 mg PO DAILY@0800 Discharge Medication List Atorvastatin [Lipitor] 40 mg PO HS@209903/15/24 [History] Clopidogrel [Plavix] 75 mg PO DAILY@79903/15/24 [History] Multivitamins, Thera [Multivitamin (formulary)] 1 tab PO DAILY@79903/15/24 [History] NIFEdipine [Adalat CC] 30 mg PO DAILY@79903/15/24 [History] [place]-3/Dha/Epa/Fish Oil [Fish Oil 1,000 mg Softgel] 1 cap PO DAILY@79903/15/24 [History] Losartan [Cozaar] 100 mg PO DAILY 2 Days #30 tab 03/17/24 [Rx] Acetaminophen [Tylenol 8 Hour] 650 mg PO Q6H PRN 04/12/24 [History] Aspirin EC [Ecotrin Low Dose] 81 mg PO DAILY@79904/12/24 [History] Dextran/Hypromellose/Glycerin [Genteal Tears 0.1%-0.2%-0.3%] 1 drop BOTH EYES BID PRN 04/12/24 [History] Magnesium Hydroxide [Milk of Magnesia Concentrate] 7,200 mg PO Q48H PRN 04/12/24 [History] Menthol [Biofreeze] 1 applic TOPICAL TID@0800,1400,209904/12/24 [History] Na Phos,M-B/Na Phos,Di-Ba [Fleet Adult] 133 ml RECTAL DAILY PRN 04/12/24 [Histor y] Oxymetazoline 0.05% Nasl [place] [Afrin 0.05% Nasal [place]] 2 spray EA NOSTRIL 5XD PRN 04/12/24 [History] Pantoprazole [Protonix] 40 mg PO DAILY@59904/12/24 [History] bisacodyL [Dulcolax] 10 mg RECTAL DAILY PRN 04/12/24 [History] cloNIDine HCL [Catapres] 0.1 mg PO Q6H PRN 04/12/24 [History] Oseltamivir [Tamiflu] 30 mg PO BID 5 Days #10 cap 04/15/24 [Rx] levETIRAcetam [Keppra] 500 mg PO BID@0800,2100 #4 tab 04/15/24 [Rx] Follow up Appointment(s)/Referral(s): Carmine Daley MD [Primary Care Provider] - 1-2 days Heron Guerrero MD [Medical Doctor] - As Needed Ambulatory/Diagnostic Orders: Complete Blood Count w/diff [LAB.AMB] Time Frame: 3 Days, Location: None Selected Activity/Diet/Wound Care/Special Instructions: Complete a 5-day course of Tamiflu on discharge patient was found to be positive for influenza at the halfway prior to admission Follow-up with general surgery as needed repeat blood counts in 2 to 3 days Discharge Disposition: TRANSFER TO SNF/ECF
[2024-04-15 13:17] LABS: BUN/Creat Ratio 8.89 Ratio (12.00-20.00); Glucose 92 mg/dL (70-110)
[2024-04-15 13:18] LABS: ALT 14 U/L (8-44); AST 21 U/L (13-35); Albumin 3.4 g/dL (3.8-4.9); Alkaline Phosphatase 61 U/L (41-126); Calcium 8.7 mg/dL (8.7-10.3); Carbon Dioxide 20.6 mmol/L (21.6-31.8); Chloride 111 mmol/L (96-109); Globulin 1.7 g/dL (1.6-3.3); Potassium 3.3 mmol/L (3.5-5.5); Sodium 142 mmol/L (135-145); Total Bilirubin 0.5 mg/dL (0.3-1.2); Total Protein 5.1 g/dL (6.2-8.2)
== END 2024-04-15 12:25 ==
LOC: EC 17:32 → 3SCARD 20:03 → 6NMEDSUR 20:59
PROVIDERS: ADMIT Family Medicine; ATTEND Family Medicine
DX: K92.2 Gastrointestinal hemorrhage, unspecified (principal); I63.9 Cerebral infarction, unspecified; D64.9 Anemia, unspecified; R04.0 Epistaxis; J11.1 Influenza due to unidentified influenza virus with other respiratory manifestations; F03.90 Unspecified dementia, unspecified severity, without behavioral disturbance, psychotic disturbance, mood disturbance, and anxiety; E78.5 Hyperlipidemia, unspecified; I10 Essential (primary) hypertension; Z87.891 Personal history of nicotine dependence; Z86.73 Personal history of transient ischemic attack (TIA), and cerebral infarction without residual deficits; Z79.899 Other long term (current) drug therapy; Z79.82 Long term (current) use of aspirin; Z79.02 Long term (current) use of antithrombotics/antiplatelets
CPT/HCPCS: 96376 ×3; 96374; 99285; 36415; 97162; 86900; 86901; 80053 ×4; 83690; 83735 ×2; 84100; 84484; 85025 ×2; 85027 ×2; 85610; 85730; 86850; 86920; G0378 ×5; P9016; C9113 ×4; 36430

== ENCOUNTER 2024-04-30 09:48 | Emergency (ER) | payer MEDICARE, OTHER ==
[2024-04-30 09:57] VITALS: RESP 18
--- NOTE | 2024-04-30 10:10 | ED ---
Eye Problem HPI - General Chief complaint: Eye Problems Stated complaint: eye injury Time Seen by Provider: 04/30/24 10:03 Source: patient, family, RN notes reviewed Mode of arrival: wheelchair Limitations: no limitations - History of Present Illness Initial comments: 89-year-old female presents emergency department complaint of right eye bleeding. Patient states that she woke up this morning noticed that she had some redness to her eye. She states she has no pain denies any visual disturbance. She states she murmurs rub in the middle the night. Patient denies any other associated symptoms. Denies pain with ocular movements. - Related Data Home Medications Medication Instructions Recorded Confirmed Atorvastatin [Lipitor] 40 mg PO HS@209903/15/24 04/12/24 Clopidogrel [Plavix] 75 mg PO DAILY@0803/15/24 04/12/24 Multivitamins, Thera [Multivitamin 1 tab PO DAILY@0800 03/15/24 04/12/24 (formulary)] NIFEdipine [Adalat CC] 30 mg PO DAILY@0803/15/24 04/12/24 [place]-3/Dha/Epa/Fish Oil [Fish Oil 1 cap PO DAILY@0800 03/15/24 04/12/24 1,000 mg Softgel] Acetaminophen [Tylenol 8 Hour] 650 mg PO Q6H PRN 04/12/24 04/12/24 Aspirin EC [Ecotrin Low Dose] 81 mg PO DAILY@0800 04/12/24 04/12/24 Dextran/Hypromellose/Glycerin 1 drop BOTH EYES BID PRN 04/12/24 04/12/24 [Genteal Tears 0.1%-0.2%-0.3%] Magnesium Hydroxide [Milk of 7,200 mg PO Q48H PRN 04/12/24 04/12/24 Magnesia Concentrate] Menthol [Biofreeze] 1 applic TOPICAL TID@0800,1400,2100 04/12/24 04/12/24 Na Phos,M-B/Na Phos,Di-Ba [Fleet 133 ml RECTAL DAILY PRN 04/12/24 04/12/24 Adult] Oxymetazoline 0.05% Nasl [place] 2 spray EA NOSTRIL 5XD PRN 04/12/24 04/12/24 [Afrin 0.05% Nasal [place]] Pantoprazole [Protonix] 40 mg PO DAILY@0600 04/12/24 04/12/24 bisacodyL [Dulcolax] 10 mg RECTAL DAILY PRN 04/12/24 04/12/24 cloNIDine HCL [Catapres] 0.1 mg PO Q6H PRN 04/12/24 04/12/24 Previous Rx's Medication Instructions Recorded Losartan [Cozaar] 100 mg PO DAILY 2 Days #30 tab 03/17/24 Oseltamivir [Tamiflu] 30 mg PO BID 5 Days #10 cap 04/15/24 levETIRAcetam [Keppra] 500 mg PO BID@0800,2100 #4 tab 04/15/24 Allergies Allergy/AdvReac Type Severity Reaction Status Date / Time codeine Allergy Swelling Verified 04/30/24 09:57 Penicillins Allergy Rash/Hives Verified 04/30/24 09:57 Review of Systems ROS Statement: Those systems with pertinent positive or pertinent negative responses have been documented in the HPI. ROS Other: All systems not noted in ROS Statement are negative. Past Medical History Past Medical History: CVA/TIA, Dementia, Hyperlipidemia, Hypertension Additional Past Medical History / Comment(s): stroke with brain bleed- 2023, difficulty in walking History of Any Multi-Drug Resistant Organisms: Unobtainable Past Surgical History: Section, Hernia Repair, Orthopedic Surgery Additional Past Surgical History / Comment(s): knee surgery, Smoking Status: Former smoker Past Alcohol Use History: Unable to Obtain Past Drug Use History: Unable to Obtain General Exam Limitations: no limitations General appearance: alert, in no apparent distress Head exam: Present: atraumatic, normocephalic, normal inspection Eye exam: Present: PERRL, EOMI, conjunctival injection (Subconjunctival hemorrhage on the right). Absent: normal appearance, scleral icterus, periorbital swelling, periorbital tenderness Pupils: Present: normal accommodation ENT exam: Present: normal exam, normal oropharynx, mucous membranes moist Neck exam: Present: normal inspection, full ROM. Absent: tenderness, meningismus, lymphadenopathy Respiratory exam: Present: normal lung sounds bilaterally. Absent: respiratory distress, wheezes, rales, rhonchi, stridor Cardiovascular Exam: Present: regular rate, normal rhythm, normal heart sounds. Absent: systolic murmur, diastolic murmur, rubs, gallop, clicks Course Vital Signs 04/30/24 09:56 Temperature 98.5 F Pulse Rate 80 Respiratory 18 Rate Blood Pressure 134/68 O2 Sat by Pulse 97 Oximetry Medical Decision Making - Medical Decision Making Was pt. sent in by a medical professional or institution (, [facility], SYSTEM PROGRAMMER, urgent care, hospital, or halfway...) When possible be specific @ -No Did you speak to anyone other than the patient for history (EMS, parent, family, police, friend...)? What history was obtained from this source @ -No Did you review nursing and triage notes (agree or disagree)? Why? @ -I reviewed and agree with nursing and triage notes Were old charts reviewed (outside hosp., previous admission, EMS record, old EKG, old radiological studies, urgent care reports/EKG's, halfway records)? Report findings @ -No old charts were reviewed Differential Diagnosis (chest pain, altered mental status, abdominal pain women, abdominal pain men, vaginal bleeding, weakness, fever, dyspnea, syncope, headache, dizziness, GI bleed, back pain, seizure, CVA, palpatations, mental health, musculoskeletal)? @ -Subconjunctival hemorrhage, conjunctivitis, hyphema, EKG interpreted by me (3pts min.). @ -None X-rays interpreted by me (1pt min.). @ -None done CT interpreted by me (1pt min.). @ -None done U/S interpreted by me (1pt. min.). @ -None done What testing was considered but not performed or refused? (CT, X-rays, U/S, labs)? Why? @ -None What meds were considered but not given or refused? Why? @ -None Did you discuss the management of the patient with other professionals (professionals i.e. [facility], SYSTEM PROGRAMMER, lab, RT, psych nurse, health care social worker, lpta, teacher, youth liaison officer, manager case)? Give summary @ -No Was smoking cessation discussed for >3mins.? @ -No Was critical care preformed (if so, how long)? @ -No Were there social determinants of health that impacted care today? How? (Homelessness, low income, unemployed, alcoholism, drug addiction, transportation, low edu. Level, literacy, decrease access to med. care, half-way, rehab)? @ -No Was there de-escalation of care discussed even if they declined (Discuss DNR or withdrawal of care, Hospice)? DNR status @ -No What co-morbidities impacted this encounter? (DM, HTN, Smoking, COPD, CAD, Cancer, CVA, ARF, Chemo, Hep., AIDS, mental health diagnosis, sleep apnea, morbid obesity)? @ -None Was patient admitted / discharged? Hospital course, mention meds given and route, prescriptions, significant lab abnormalities, going to OR and other pertinent info. @ -Discharge patient has a right subconjunctival hemorrhage. Patient has no other acute symptoms or findings. Patient is discharged in stable condition with close follow-up return parameters are discussed. Undiagnosed new problem with uncertain prognosis? @ -No Drug Therapy requiring intensive monitoring for toxicity (Heparin, Nitro, Insulin, Cardizem)? @ -No Were any procedures done? @ -No Diagnosis/symptom? @ -Subconjunctival hemorrhage Acute, or Chronic, or Acute on Chronic? @ -Acute Uncomplicated (without systemic symptoms) or Complicated (systemic symptoms)? @ -Uncomplicated Side effects of treatment? @ -No Exacerbation, Progression, or Severe Exacerbation? @ -No Poses a threat to life or bodily function? How? (Chest pain, [place], [place], pneumonia, PE, COPD, DKA, ARF, appy, cholecystitis, CVA, Diverticulitis, Homicidal, Suicidal, threat to staff... and all critical care pts) @ -No Disposition Clinical Impression: Subconjunctival hemorrhage Disposition: HOME SELF-CARE Condition: Stable Instructions (If sedation given, give patient instructions): Subconjunctival Hemorrhage (ED) Additional Instructions: Please return to the Emergency Department if symptoms worsen or any other concerns. Is patient prescribed a controlled substance at d/c from ED?: No Referrals: Carmine Daley MD [Primary Care Provider] - 1-2 days Time of Disposition: 10:10
[2024-04-30 10:15] VITALS: BP 132/80; PULSE 76; TEMP 98.1
== END 2024-04-30 10:13 | disposition home or self-care (01) ==
LOC: EC 09:48
DX: H11.31 Conjunctival hemorrhage, right eye (principal); Z88.5 Allergy status to narcotic agent; Z88.0 Allergy status to penicillin; Z87.891 Personal history of nicotine dependence
CPT/HCPCS: 99283